=== PATIENT | female | born 1965 | race Caucasian/White ===

== ENCOUNTER 2021-12-14 13:51 | Outpatient (CLI) | payer MEDICARE | END 2021-12-14 13:52 | disposition home or self-care (01) | LOC: NAV CT 13:51 | PROVIDERS: ATTEND Internal Medicine Nephrology | DX: N18.30 Chronic kidney disease, stage 3 unspecified (principal); N28.1 Cyst of kidney, acquired; K76.9 Liver disease, unspecified; I70.90 Unspecified atherosclerosis; Z90.710 Acquired absence of both cervix and uterus; K42.9 Umbilical hernia without obstruction or gangrene | CPT/HCPCS: 74176 ==

== ENCOUNTER 2021-12-18 15:07 | Emergency (ER) | payer MEDICARE ==
[2021-12-18] MEDS ORDERED: Aspirin Chewable 81 MG TAB ONE (15:50)
[2021-12-18 15:51] LABS: #Basophils 0.1 thou/uL (0.0-0.2); #Eosinphils 0.4 thou/uL (0.0-0.7); #Lymphocytes 1.7 thou/uL (1.20-3.40); #Monocytes 0.7 thou/uL (0.11-0.59); #Neutrophils 4.3 thou/uL (1.40-6.50); %Basophils 0.7 % (0.0-1.0); %Eosinophils 5.7 % (0.0-10.0); %Lymphocytes 24.1 % (21.0-51.0); %Monocytes 9.2 % (0.0-10.0); %Neutrophils 60.2 % (42.0-75.0); Hemoglobin 9.2 g/dL (12.0-16.0); Mean Corpuscular HGB CONC 32.5 g/dL (32.0-36.0); Mean Corpuscular Hemoglobin 30.5 pg (27.0-31.0); Mean Corpuscular Volume 93.7 fL (78.0-98.0); Mean Platelet Volume 6.6 fL (7.4-10.4); Platelet Count 343 thou/uL (130-400); RBC Distribution Width 14.4 % (11.5-14.5); Red Blood Cell (RBC) Count 3.03 mill/uL (4.20-5.40); White Blood Cell (WBC) Count 7.2 thou/uL (4.8-10.8)
[2021-12-18 16:09] LABS: ALT (SGPT) 28 U/L (8-55); AST (SGOT) 31 U/L (5-34); Albumin 2.1 g/dL (3.5-5.0); Alkaline Phosphatase 421 U/L (40-110); Anion Gap 12 mmol/L (10-20); BUN (Urea Nitrogen) 22 mg/dL (9.8-20.1); Bilirubin, Total 0.1 mg/dL (0.2-1.2); Calc. Creatinine Clearance 0 mL/min (70-130); Calcium 8.7 mg/dL (7.8-10.44); Carbon Dioxide 24 mmol/L (22-29); Chloride 105 mmol/L (98-107); Globulin 3.5 g/dL (2.4-3.5); Glucose 359 mg/dL (70-105); Lipase 55 U/L (8-78); Potassium 4.2 mmol/L (3.5-5.1); Protein, Total 5.6 g/dL (6.0-8.3); Sodium 137 mmol/L (136-145)
[2021-12-18] MEDS ORDERED: Sodium Chloride 0.9% 1,000 ML ONE (18:43)
[2021-12-18 19:28] LABS: Troponin I Less than 0.010 ng/mL (< 0.028)
== END 2021-12-18 21:17 | disposition short-term general hospital (02) ==
LOC: NAV ERS 15:07
DX: R07.9 Chest pain, unspecified (principal); R60.0 Localized edema; R79.1 Abnormal coagulation profile; I10 Essential (primary) hypertension; E11.9 Type 2 diabetes mellitus without complications; E78.5 Hyperlipidemia, unspecified; Z79.84 Long term (current) use of oral hypoglycemic drugs; Z79.899 Other long term (current) drug therapy
CPT/HCPCS: 36415; 71045; 80053; 83690; 83880; 84484; 85025; 85379; 93005; 94760; J7050

== ENCOUNTER 2022-06-15 11:24 | Emergency (ER) | payer OTHER, MEDICARE ==
[2022-06-15] MEDS ORDERED: HYDROcodone/Acetaminophen 10/325 mg Tablet ONE (12:11)
== END 2022-06-15 15:05 | disposition home or self-care (01) ==
LOC: NAV ERS 11:24
DX: S22.42XA Multiple fractures of ribs, left side, initial encounter for closed fracture (principal); E11.9 Type 2 diabetes mellitus without complications; I10 Essential (primary) hypertension; E78.5 Hyperlipidemia, unspecified; Z79.899 Other long term (current) drug therapy; W01.10XA Fall on same level from slipping, tripping and stumbling with subsequent striking against unspecified object, initial encounter
CPT/HCPCS: 71250

== ENCOUNTER 2022-06-18 16:31 | Emergency (ER) | payer OTHER, MEDICARE ==
[2022-06-18] MEDS ORDERED: HYDROcodone/Acetaminophen 10/325 mg Tablet ONE (17:40)
[2022-06-18 17:58] LABS: #Basophils 0.1 thou/uL (0.0-0.2); #Eosinphils 0.1 thou/uL (0.0-0.7); #Lymphocytes 1.3 thou/uL (1.20-3.40); #Monocytes 0.7 thou/uL (0.11-0.59); #Neutrophils 6.8 thou/uL (1.40-6.50); %Basophils 0.7 % (0.0-1.0); %Lymphocytes 14.9 % (21.0-51.0); %Monocytes 8.1 % (0.0-10.0); %Neutrophils 75.4 % (42.0-75.0); Hemoglobin 10.6 g/dL (12.0-16.0); Mean Corpuscular HGB CONC 31.8 g/dL (32.0-36.0); Mean Corpuscular Hemoglobin 30.9 pg (27.0-31.0); Mean Corpuscular Volume 97.1 fL (78.0-98.0); Mean Platelet Volume 8.3 fL (7.4-10.4); Platelet Count 360 thou/uL (130-400); RBC Distribution Width 16.5 % (11.5-14.5); Red Blood Cell (RBC) Count 3.45 mill/uL (4.20-5.40)
[2022-06-18 18:09] LABS: ALT (SGPT) 26 U/L (8-55); AST (SGOT) 17 U/L (5-34); Albumin 2.1 g/dL (3.5-5.0); Alkaline Phosphatase 496 U/L (40-110); Anion Gap 14 mmol/L (10-20); BUN (Urea Nitrogen) 43 mg/dL (9.8-20.1); Bilirubin, Total 0.1 mg/dL (0.2-1.2); Calc. Creatinine Clearance 0 mL/min (70-130); Calcium 8.7 mg/dL (7.8-10.44); Carbon Dioxide 18 mmol/L (22-29); Chloride 109 mmol/L (98-107); Estimated GFR 22; Globulin 3.7 g/dL (2.4-3.5); Glucose 231 mg/dL (70-105); Potassium 4.2 mmol/L (3.5-5.1); Protein, Total 5.8 g/dL (6.0-8.3); Sodium 137 mmol/L (136-145)
[2022-06-18] MEDS ORDERED: Sodium Chloride 0.9% 100 ML ONE (18:34)
[2022-06-18] MEDS ORDERED: cefTRIAXone\\ROCEPHIN 1 GM VIAL ONE (18:34)
[2022-06-18 19:21] LABS: SARS-CoV-2 NAA Rapid Test DETECTED (NotDetected)
[2022-06-18] MEDS ORDERED: Metoprolol Tartrate 50 MG TAB ONE (19:31)
== END 2022-06-18 20:02 | disposition short-term general hospital (02) ==
LOC: NAV ERS 16:31
DX: U07.1 COVID-19 (principal); S22.42XA Multiple fractures of ribs, left side, initial encounter for closed fracture; J90 Pleural effusion, not elsewhere classified; N28.9 Disorder of kidney and ureter, unspecified; E11.9 Type 2 diabetes mellitus without complications; I10 Essential (primary) hypertension; E78.5 Hyperlipidemia, unspecified; Z79.4 Long term (current) use of insulin; Z79.899 Other long term (current) drug therapy; X58.XXXA Exposure to other specified factors, initial encounter
CPT/HCPCS: 36415; 71045; 80053; 83880; 84484; 85025; 85379; 93005; 94760; 96365; J0696; J3490; U0002

== ENCOUNTER 2022-06-27 09:39 | Inpatient (IN) | payer OTHER ==
[2022-06-27] MEDS ORDERED: Albuterol 200 PUFF (6.7GM INHALER) INH PRN (11:30)
[2022-06-27] MEDS ORDERED: Cyclobenzaprine 10 MG TAB PO PRN (11:35)
[2022-06-27] MEDS ORDERED: Senokot S 8.6-50 MG TAB PO PRN (11:36)
[2022-06-27] MEDS ORDERED: Dextrose 50% Abboject 50 ML SYRINGE SLOW IVP PRN (11:36)
[2022-06-27] MEDS ORDERED: Ondansetron ODT 4 MG TAB PO PRN (11:36)
[2022-06-27] MEDS ORDERED: Bisacodyl 5 MG TAB PO PRN (11:36)
[2022-06-27] MEDS ORDERED: HumaLOG 300 UNITS/3 ML VIAL SC PRN ×2 (11:38)
[2022-06-27] MEDS ORDERED: Promethazine HCl 25 MG/ML VIAL IM PRN (11:40)
[2022-06-27] MEDS: traMADol HCl 50 MG TAB PO SCH ×2 (13:50→21:41)
[2022-06-27 14:02] VITALS: BMI 26.9
[2022-06-27] MEDS: Gabapentin 100 MG CAP PO SCH ×2 (15:20→21:39)
[2022-06-27] MEDS: cloNIDine 0.1 MG TAB PO SCH ×2 (15:24→21:40)
[2022-06-27] MEDS: Acetaminophen 500 MG TAB PO SCH (17:53)
[2022-06-27] MEDS ORDERED: Atorvastatin Calcium 40 MG TAB PO SCH (21:00)
[2022-06-27] MEDS: Sodium Chloride 1 GM TAB PO SCH (21:38)
[2022-06-27] MEDS: Metoprolol Tartrate 50 MG TAB PO SCH (21:40)
[2022-06-28] MEDS: Acetaminophen 500 MG TAB PO SCH ×4 (00:40→17:06)
[2022-06-28] MEDS: traMADol HCl 50 MG TAB PO SCH ×2 (05:54→13:23)
[2022-06-28 06:07] LABS: #Basophils 0.1 thou/uL (0.0-0.2); #Eosinphils 0.3 thou/uL (0.0-0.7); #Lymphocytes 1.6 thou/uL (1.20-3.40); #Monocytes 0.7 thou/uL (0.11-0.59); #Neutrophils 7.8 thou/uL (1.40-6.50); %Basophils 0.5 % (0.0-1.0); %Eosinophils 2.7 % (0.0-10.0); %Lymphocytes 15.7 % (21.0-51.0); %Monocytes 6.2 % (0.0-10.0); %Neutrophils 74.9 % (42.0-75.0); Hemoglobin 10.9 g/dL (12.0-16.0); Mean Corpuscular HGB CONC 31.5 g/dL (32.0-36.0); Mean Corpuscular Hemoglobin 30.3 pg (27.0-31.0); Mean Corpuscular Volume 96.1 fL (78.0-98.0); Mean Platelet Volume 8.5 fL (7.4-10.4); Platelet Count 417 thou/uL (130-400); RBC Distribution Width 16.7 % (11.5-14.5); Red Blood Cell (RBC) Count 3.61 mill/uL (4.20-5.40); White Blood Cell (WBC) Count 10.4 thou/uL (4.8-10.8)
[2022-06-28 06:21] LABS: ALT (SGPT) 37 U/L (8-55); AST (SGOT) 26 U/L (5-34); Albumin 1.9 g/dL (3.5-5.0); Alkaline Phosphatase 993 U/L (40-110); Anion Gap 16 mmol/L (10-20); BUN (Urea Nitrogen) 43 mg/dL (9.8-20.1); Bilirubin, Total 0.3 mg/dL (0.2-1.2); Calc. Creatinine Clearance 26 mL/min (70-130); Calcium 8.1 mg/dL (7.8-10.44); Carbon Dioxide 20 mmol/L (22-29); Chloride 99 mmol/L (98-107); Estimated GFR 21; Globulin 3.6 g/dL (2.4-3.5); Glucose 126 mg/dL (70-105); Potassium 4.2 mmol/L (3.5-5.1); Protein, Total 5.5 g/dL (6.0-8.3); Sodium 131 mmol/L (136-145)
[2022-06-28] MEDS ORDERED: Ferrous Sulfate 325 MG TAB PO SCH (08:00)
[2022-06-28] MEDS: Sodium Chloride 1 GM TAB PO SCH (08:50)
[2022-06-28] MEDS: Metoprolol Tartrate 50 MG TAB PO SCH (08:50)
[2022-06-28] MEDS: Gabapentin 100 MG CAP PO SCH ×2 (08:51→15:08)
[2022-06-28] MEDS: cloNIDine 0.1 MG TAB PO SCH ×2 (08:53→15:09)
[2022-06-28] MEDS ORDERED: Enoxaparin Sodium 30 MG/0.3 ML SYRINGE SC SCH (09:00)
[2022-06-28] MEDS ORDERED: Ascorbic Acid 500 mg Chewable Tablet PO SCH (09:00)
[2022-06-28 11:32] VITALS: TEMP 97.7
[2022-06-28 15:25] VITALS: BP 100/63
[2022-06-28] MEDS ORDERED: Furosemide 20 MG TAB PO SCH (15:45)
== END 2022-06-28 17:30 | disposition short-term general hospital (02) | DRG 947 ==
LOC: NAV ACUTE 12:46
PROVIDERS: ADMIT Family Medicine; ATTEND Family Medicine
PROC: 8E0ZXY6 Isolation (ICD-10-PCS; principal; 2022-06-27)
DX: R53.81 Other malaise (principal); S27.1XXA Traumatic hemothorax, initial encounter; U07.1 COVID-19; S22.42XA Multiple fractures of ribs, left side, initial encounter for closed fracture; I13.0 Hypertensive heart and chronic kidney disease with heart failure and stage 1 through stage 4 chronic kidney disease, or unspecified chronic kidney disease; I50.30 Unspecified diastolic (congestive) heart failure; N18.4 Chronic kidney disease, stage 4 (severe); E87.1 Hypo-osmolality and hyponatremia; N17.9 Acute kidney failure, unspecified; E78.5 Hyperlipidemia, unspecified; E11.22 Type 2 diabetes mellitus with diabetic chronic kidney disease; Z90.710 Acquired absence of both cervix and uterus; Z90.89 Acquired absence of other organs; Z88.5 Allergy status to narcotic agent; Z83.3 Family history of diabetes mellitus; Z82.49 Family history of ischemic heart disease and other diseases of the circulatory system
CPT/HCPCS: 36415; 36416; 80053; 85025; J1650; J1815

== ENCOUNTER 2022-07-04 15:11 | Inpatient (IN) | payer OTHER ==
[2022-07-04] MEDS ORDERED: Senokot S 8.6-50 MG TAB PO PRN (16:52)
[2022-07-04] MEDS ORDERED: Bisacodyl 5 MG TAB PO PRN (16:52)
[2022-07-04] MEDS ORDERED: Ondansetron ODT 4 MG TAB PO PRN (16:52)
[2022-07-04] MEDS ORDERED: Dextrose 50% Abboject 50 ML SYRINGE SLOW IVP PRN (16:52)
[2022-07-04] MEDS ORDERED: Albuterol Sulfate 2.5 mg/3 ml Neb NEB PRN (20:13)
[2022-07-04] MEDS ORDERED: Ondansetron ODT 4 MG TAB SL PRN (21:00)
[2022-07-04] MEDS: Atorvastatin Calcium 40 MG TAB PO SCH (21:11)
[2022-07-04] MEDS: cloNIDine 0.1 MG TAB PO SCH (21:11)
[2022-07-04] MEDS: Famotidine 20 MG TAB PO SCH (21:12)
[2022-07-04] MEDS: Gabapentin 100 MG CAP PO SCH (21:12)
[2022-07-04] MEDS: Lantus 1000 UNITS/10 ML VIAL SC SCH (21:13)
[2022-07-04] MEDS: Metoprolol Tartrate 50 MG TAB PO SCH (21:13)
[2022-07-04] MEDS: traMADol HCl 50 MG TAB PO SCH (22:12)
[2022-07-05] MEDS: traMADol HCl 50 MG TAB PO SCH ×3 (05:23→21:03)
[2022-07-05 06:13] LABS: ALT (SGPT) 60 U/L (8-55); AST (SGOT) 57 U/L (5-34); Albumin 1.7 g/dL (3.5-5.0); Alkaline Phosphatase 1135 U/L (40-110); Anion Gap 12 mmol/L (10-20); BUN (Urea Nitrogen) 35 mg/dL (9.8-20.1); Bilirubin, Total 0.2 mg/dL (0.2-1.2); Calc. Creatinine Clearance 35 mL/min (70-130); Calcium 7.7 mg/dL (7.8-10.44); Chloride 112 mmol/L (98-107); Estimated GFR 31; Glucose 84 mg/dL (70-105); Potassium 3.8 mmol/L (3.5-5.1); Protein, Total 4.7 g/dL (6.0-8.3); Sodium 142 mmol/L (136-145)
[2022-07-05 06:36] LABS: #Basophils 0.1 thou/uL (0.0-0.2); #Eosinphils 0.7 thou/uL (0.0-0.7); #Lymphocytes 1.2 thou/uL (1.20-3.40); #Monocytes 0.6 thou/uL (0.11-0.59); #Neutrophils 5.7 thou/uL (1.40-6.50); %Basophils 1.2 % (0.0-1.0); %Eosinophils 8.3 % (0.0-10.0); %Lymphocytes 14.2 % (21.0-51.0); %Monocytes 7.5 % (0.0-10.0); %Neutrophils 68.9 % (42.0-75.0); Mean Corpuscular HGB CONC 31.1 g/dL (32.0-36.0); Mean Corpuscular Hemoglobin 30.7 pg (27.0-31.0); Mean Corpuscular Volume 98.6 fL (78.0-98.0); Mean Platelet Volume 8.5 fL (7.4-10.4); Platelet Count 399 thou/uL (130-400); RBC Distribution Width 17.9 % (11.5-14.5); Red Blood Cell (RBC) Count 2.95 mill/uL (4.20-5.40); White Blood Cell (WBC) Count 8.3 thou/uL (4.8-10.8)
[2022-07-05 06:40] LABS: Carbon Dioxide 22 mmol/L (22-29)
[2022-07-05] MEDS: Metoprolol Tartrate 50 MG TAB PO SCH ×2 (08:13→20:55)
[2022-07-05] MEDS: Gabapentin 100 MG CAP PO SCH ×3 (08:13→20:56)
[2022-07-05] MEDS: Enoxaparin Sodium 30 MG/0.3 ML SYRINGE SC SCH (08:13)
[2022-07-05] MEDS: Ferrous Sulfate 325 MG TAB PO SCH (08:13)
[2022-07-05] MEDS: cloNIDine 0.1 MG TAB PO SCH ×3 (08:14→20:57)
[2022-07-05] MEDS: Famotidine 20 MG TAB PO SCH (08:14)
[2022-07-05] MEDS: Ascorbic Acid 500 mg Chewable Tablet PO SCH (08:14)
[2022-07-05] MEDS: Cyclobenzaprine 10 MG TAB PO PRN (08:44)
[2022-07-05] MEDS ORDERED: Metoprolol Tartrate 50 MG TAB PO SCH (09:45)
[2022-07-05] MEDS: Lantus 1000 UNITS/10 ML VIAL SC SCH (20:53)
[2022-07-05] MEDS: Atorvastatin Calcium 40 MG TAB PO SCH (20:56)
[2022-07-06] MEDS: traMADol HCl 50 MG TAB PO SCH ×3 (05:32→21:17)
[2022-07-06] MEDS ORDERED: Furosemide 40 MG TAB PO SCH (08:00)
[2022-07-06] MEDS: Enoxaparin Sodium 30 MG/0.3 ML SYRINGE SC SCH (09:02)
[2022-07-06] MEDS: Gabapentin 100 MG CAP PO SCH ×3 (09:03→21:16)
[2022-07-06] MEDS: Ferrous Sulfate 325 MG TAB PO SCH (09:04)
[2022-07-06] MEDS: Famotidine 20 MG TAB PO SCH (09:04)
[2022-07-06] MEDS: Polyethylene Glycol 3350 17 GM Packet PO SCH (09:05)
[2022-07-06] MEDS: Metoprolol Tartrate 50 MG TAB PO SCH ×2 (09:05→21:16)
[2022-07-06] MEDS: Ascorbic Acid 500 mg Chewable Tablet PO SCH (09:05)
[2022-07-06] MEDS: cloNIDine 0.1 MG TAB PO SCH ×3 (09:05→21:16)
[2022-07-06] MEDS: Atorvastatin Calcium 40 MG TAB PO SCH (21:16)
[2022-07-06] MEDS: Cyclobenzaprine 10 MG TAB PO PRN (21:17)
[2022-07-06] MEDS: Lantus 1000 UNITS/10 ML VIAL SC SCH (21:18)
[2022-07-07] MEDS: traMADol HCl 50 MG TAB PO SCH ×3 (06:13→21:12)
[2022-07-07] MEDS: Enoxaparin Sodium 30 MG/0.3 ML SYRINGE SC SCH (08:54)
[2022-07-07] MEDS: Polyethylene Glycol 3350 17 GM Packet PO SCH (08:54)
[2022-07-07] MEDS: Gabapentin 100 MG CAP PO SCH ×3 (08:55→21:11)
[2022-07-07] MEDS: cloNIDine 0.1 MG TAB PO SCH ×3 (08:55→21:12)
[2022-07-07] MEDS: Famotidine 20 MG TAB PO SCH (08:55)
[2022-07-07] MEDS: Ferrous Sulfate 325 MG TAB PO SCH (08:55)
[2022-07-07] MEDS: Ascorbic Acid 500 mg Chewable Tablet PO SCH (08:55)
[2022-07-07] MEDS: Metoprolol Tartrate 50 MG TAB PO SCH ×2 (08:56→21:13)
[2022-07-07] MEDS: Cyclobenzaprine 10 MG TAB PO PRN ×2 (08:56→21:12)
[2022-07-07] MEDS ORDERED: Fluconazole 100 MG TAB PO SCH (11:15)
[2022-07-07] MEDS: HumaLOG 300 UNITS/3 ML VIAL SC PRN (16:46)
[2022-07-07] MEDS: Lantus 1000 UNITS/10 ML VIAL SC SCH (21:11)
[2022-07-07] MEDS: Atorvastatin Calcium 40 MG TAB PO SCH (21:11)
[2022-07-08] MEDS: traMADol HCl 50 MG TAB PO SCH ×3 (05:52→20:15)
[2022-07-08 06:11] LABS: Anion Gap 13 mmol/L (10-20); BUN (Urea Nitrogen) 37 mg/dL (9.8-20.1); Calc. Creatinine Clearance 38 mL/min (70-130); Calcium 7.7 mg/dL (7.8-10.44); Carbon Dioxide 20 mmol/L (22-29); Chloride 111 mmol/L (98-107); Estimated GFR 34; Glucose 108 mg/dL (70-105); Potassium 6.2 mmol/L (3.5-5.1); Sodium 138 mmol/L (136-145)
[2022-07-08] MEDS: Famotidine 20 MG TAB PO SCH (08:23)
[2022-07-08] MEDS: Ferrous Sulfate 325 MG TAB PO SCH (08:23)
[2022-07-08] MEDS: Fluconazole 100 MG TAB PO SCH (08:23)
[2022-07-08] MEDS: Ascorbic Acid 500 mg Chewable Tablet PO SCH (08:23)
[2022-07-08] MEDS: cloNIDine 0.1 MG TAB PO SCH ×3 (08:24→20:25)
[2022-07-08] MEDS: Gabapentin 100 MG CAP PO SCH ×3 (08:24→20:16)
[2022-07-08] MEDS: Metoprolol Tartrate 50 MG TAB PO SCH ×2 (08:24→20:16)
[2022-07-08] MEDS: Enoxaparin Sodium 30 MG/0.3 ML SYRINGE SC SCH (08:25)
[2022-07-08] MEDS: Polyethylene Glycol 3350 17 GM Packet PO SCH ×2 (08:25→08:26)
[2022-07-08 10:03] LABS: #Basophils 0.1 thou/uL (0.0-0.2); #Lymphocytes 1.3 thou/uL (1.20-3.40); #Monocytes 0.7 thou/uL (0.11-0.59); #Neutrophils 5.5 thou/uL (1.40-6.50); %Lymphocytes 15.4 % (21.0-51.0); %Monocytes 7.6 % (0.0-10.0); Hemoglobin 8.2 g/dL (12.0-16.0); Mean Corpuscular HGB CONC 30.5 g/dL (32.0-36.0); Mean Corpuscular Hemoglobin 30.3 pg (27.0-31.0); Mean Corpuscular Volume 99.1 fL (78.0-98.0); Platelet Count 396 thou/uL (130-400); RBC Distribution Width 18.4 % (11.5-14.5); Red Blood Cell (RBC) Count 2.72 mill/uL (4.20-5.40); White Blood Cell (WBC) Count 8.7 thou/uL (4.8-10.8)
[2022-07-08] MEDS: Lantus 1000 UNITS/10 ML VIAL SC SCH (20:15)
[2022-07-08] MEDS: Cyclobenzaprine 10 MG TAB PO PRN (20:16)
[2022-07-08] MEDS: Atorvastatin Calcium 40 MG TAB PO SCH (20:17)
[2022-07-09 05:35] VITALS: BMI 28.3
[2022-07-09] MEDS: traMADol HCl 50 MG TAB PO SCH ×3 (05:47→20:45)
[2022-07-09 05:58] LABS: #Basophils 0.1 thou/uL (0.0-0.2); #Lymphocytes 1.8 thou/uL (1.20-3.40); #Monocytes 0.9 thou/uL (0.11-0.59); #Neutrophils 5.7 thou/uL (1.40-6.50); %Basophils 1.4 % (0.0-1.0); %Eosinophils 10.1 % (0.0-10.0); %Lymphocytes 19.2 % (21.0-51.0); %Monocytes 9.2 % (0.0-10.0); %Neutrophils 60.1 % (42.0-75.0); Hemoglobin 8.5 g/dL (12.0-16.0); Mean Corpuscular HGB CONC 30.3 g/dL (32.0-36.0); Mean Corpuscular Hemoglobin 30.5 pg (27.0-31.0); Platelet Count 364 thou/uL (130-400); RBC Distribution Width 18.6 % (11.5-14.5); Red Blood Cell (RBC) Count 2.79 mill/uL (4.20-5.40); White Blood Cell (WBC) Count 9.5 thou/uL (4.8-10.8)
[2022-07-09 06:04] LABS: Anion Gap 15 mmol/L (10-20); BUN (Urea Nitrogen) 40 mg/dL (9.8-20.1); Calc. Creatinine Clearance 37 mL/min (70-130); Calcium 7.6 mg/dL (7.8-10.44); Carbon Dioxide 16 mmol/L (22-29); Chloride 114 mmol/L (98-107); Estimated GFR 31; Glucose 133 mg/dL (70-105); Sodium 138 mmol/L (136-145)
[2022-07-09] MEDS: Gabapentin 100 MG CAP PO SCH ×3 (08:19→20:44)
[2022-07-09] MEDS: Enoxaparin Sodium 30 MG/0.3 ML SYRINGE SC SCH (08:19)
[2022-07-09] MEDS: Ferrous Sulfate 325 MG TAB PO SCH (08:20)
[2022-07-09] MEDS: Fluconazole 100 MG TAB PO SCH (08:20)
[2022-07-09] MEDS: Famotidine 20 MG TAB PO SCH (08:20)
[2022-07-09] MEDS: cloNIDine 0.1 MG TAB PO SCH ×3 (08:20→20:45)
[2022-07-09] MEDS: Metoprolol Tartrate 50 MG TAB PO SCH ×2 (08:21→20:44)
[2022-07-09] MEDS: Ascorbic Acid 500 mg Chewable Tablet PO SCH (08:21)
[2022-07-09] MEDS: Polyethylene Glycol 3350 17 GM Packet PO SCH (08:22)
[2022-07-09 09:29] LABS: Potassium 4.5 mmol/L (3.5-5.1)
[2022-07-09] MEDS: Atorvastatin Calcium 40 MG TAB PO SCH (20:43)
[2022-07-09] MEDS: Lantus 1000 UNITS/10 ML VIAL SC SCH (20:48)
[2022-07-10] MEDS: HumaLOG 300 UNITS/3 ML VIAL SC PRN ×3 (06:01→16:40)
[2022-07-10] MEDS: traMADol HCl 50 MG TAB PO SCH ×3 (06:01→22:07)
[2022-07-10] MEDS: Gabapentin 100 MG CAP PO SCH ×3 (07:54→20:33)
[2022-07-10] MEDS: Polyethylene Glycol 3350 17 GM Packet PO SCH ×2 (07:54→07:56)
[2022-07-10] MEDS: Enoxaparin Sodium 30 MG/0.3 ML SYRINGE SC SCH (07:54)
[2022-07-10] MEDS: Metoprolol Tartrate 50 MG TAB PO SCH ×2 (07:55→20:34)
[2022-07-10] MEDS: Ascorbic Acid 500 mg Chewable Tablet PO SCH (07:55)
[2022-07-10] MEDS: Famotidine 20 MG TAB PO SCH (07:55)
[2022-07-10] MEDS: Fluconazole 100 MG TAB PO SCH (07:55)
[2022-07-10] MEDS: Ferrous Sulfate 325 MG TAB PO SCH (07:55)
[2022-07-10] MEDS: cloNIDine 0.1 MG TAB PO SCH ×3 (07:55→20:35)
[2022-07-10] MEDS: Cyclobenzaprine 10 MG TAB PO PRN (11:15)
[2022-07-10] MEDS: Acetaminophen 325 MG TAB PO PRN (11:15)
[2022-07-10] MEDS ORDERED: NIFEdipine XL 30 MG TAB PO SCH (17:00)
[2022-07-10] MEDS ORDERED: Fluconazole 100 MG TAB PO SCH (17:15)
[2022-07-10] MEDS: Atorvastatin Calcium 40 MG TAB PO SCH (20:36)
[2022-07-10] MEDS: Lantus 1000 UNITS/10 ML VIAL SC SCH (20:36)
[2022-07-11] MEDS: traMADol HCl 50 MG TAB PO SCH ×3 (05:26→21:39)
[2022-07-11] MEDS: Ferrous Sulfate 325 MG TAB PO SCH (08:49)
[2022-07-11] MEDS: Gabapentin 100 MG CAP PO SCH ×3 (08:49→21:38)
[2022-07-11] MEDS: Famotidine 20 MG TAB PO SCH (08:50)
[2022-07-11] MEDS: Ascorbic Acid 500 mg Chewable Tablet PO SCH (08:50)
[2022-07-11] MEDS: Polyethylene Glycol 3350 17 GM Packet PO SCH (08:50)
[2022-07-11] MEDS: Enoxaparin Sodium 30 MG/0.3 ML SYRINGE SC SCH (08:50)
[2022-07-11] MEDS: Acetaminophen 325 MG TAB PO PRN (08:54)
[2022-07-11] MEDS: NIFEdipine XL 30 MG TAB PO SCH (09:01)
[2022-07-11] MEDS: Metoprolol Tartrate 50 MG TAB PO SCH ×2 (09:02→21:39)
[2022-07-11] MEDS: cloNIDine 0.1 MG TAB PO SCH ×2 (09:02→16:03)
[2022-07-11] MEDS: HumaLOG 300 UNITS/3 ML VIAL SC PRN ×3 (11:22→21:40)
[2022-07-11 16:18] LABS: #Basophils 0.1 thou/uL (0.0-0.2); #Eosinphils 0.5 thou/uL (0.0-0.7); #Lymphocytes 2.2 thou/uL (1.20-3.40); #Monocytes 0.8 thou/uL (0.11-0.59); #Neutrophils 5.4 thou/uL (1.40-6.50); %Basophils 1.4 % (0.0-1.0); %Eosinophils 5.7 % (0.0-10.0); %Lymphocytes 24.1 % (21.0-51.0); %Monocytes 9.1 % (0.0-10.0); %Neutrophils 59.7 % (42.0-75.0); Hemoglobin 8.6 g/dL (12.0-16.0); Mean Corpuscular HGB CONC 29.3 g/dL (32.0-36.0); Mean Platelet Volume 7.7 fL (7.4-10.4); Platelet Count 445 thou/uL (130-400); RBC Distribution Width 19.5 % (11.5-14.5); Red Blood Cell (RBC) Count 2.85 mill/uL (4.20-5.40)
[2022-07-11 16:35] LABS: Anion Gap 17 mmol/L (10-20); BUN (Urea Nitrogen) 40 mg/dL (9.8-20.1); Calc. Creatinine Clearance 28 mL/min (70-130); Calcium 8.5 mg/dL (7.8-10.44); Carbon Dioxide 16 mmol/L (22-29); Chloride 109 mmol/L (98-107); Estimated GFR 23; Glucose 195 mg/dL (70-105); Potassium 5.3 mmol/L (3.5-5.1); Sodium 137 mmol/L (136-145)
[2022-07-11] MEDS ORDERED: Sodium Chloride 0.9% 1,000 ML IV SCH (19:00)
[2022-07-11] MEDS: Lantus 1000 UNITS/10 ML VIAL SC SCH (21:39)
[2022-07-11] MEDS: Atorvastatin Calcium 40 MG TAB PO SCH (21:46)
[2022-07-12] MEDS: traMADol HCl 50 MG TAB PO SCH ×3 (05:51→20:57)
[2022-07-12 06:11] LABS: Bilirubin Negative (Negative); Blood, Urine Moderate (Negative); Clarity Slightly Cloudy (Clear); Glucose, Urine (Dipstick) 250 mg/dL (Negative); Ketone, Urine Negative (Negative); Leukocyte Small (Negative); Nitrite Positive (Negative); Protein, Urine (Dipstick) > or equal to 300 mg/dL (Neg-Trace); Urobilinogen 0.2 mg/dL (Less than 2); pH, Urine 5.5 (5.0-9.0)
[2022-07-12 06:20] LABS: Bacteria/HPF 4+ HPF (None Seen); Squamous Epithelial None Seen HPF (0-3); WBC/HPF Greater than 50 HPF (0-3); Yeast-Budding 1+ HPF (None Seen); Yeast-Hyphae 1+ HPF (None Seen)
[2022-07-12 06:21] LABS: Broad Cast 0-3 LPF (None Seen)
[2022-07-12 06:38] LABS: Anion Gap 15 mmol/L (10-20); BUN (Urea Nitrogen) 42 mg/dL (9.8-20.1); Calc. Creatinine Clearance 28 mL/min (70-130); Calcium 8.2 mg/dL (7.8-10.44); Carbon Dioxide 17 mmol/L (22-29); Chloride 112 mmol/L (98-107); Estimated GFR 22; Glucose 133 mg/dL (70-105); Potassium 5.1 mmol/L (3.5-5.1); Sodium 139 mmol/L (136-145)
[2022-07-12 06:40] LABS: #Basophils 0.2 thou/uL (0.0-0.2); #Eosinphils 0.7 thou/uL (0.0-0.7); #Lymphocytes 1.5 thou/uL (1.20-3.40); #Monocytes 1.1 thou/uL (0.11-0.59); #Neutrophils 4.7 thou/uL (1.40-6.50); %Basophils 1.9 % (0.0-1.0); %Eosinophils 8.8 % (0.0-10.0); %Monocytes 13.5 % (0.0-10.0); %Neutrophils 57.9 % (42.0-75.0); Hemoglobin 7.8 g/dL (12.0-16.0); Mean Corpuscular HGB CONC 29.6 g/dL (32.0-36.0); Mean Platelet Volume 8.1 fL (7.4-10.4); Platelet Count 392 thou/uL (130-400); RBC Distribution Width 19.1 % (11.5-14.5); Red Blood Cell (RBC) Count 2.59 mill/uL (4.20-5.40); White Blood Cell (WBC) Count 8.1 thou/uL (4.8-10.8)
[2022-07-12] MEDS: Enoxaparin Sodium 30 MG/0.3 ML SYRINGE SC SCH (08:16)
[2022-07-12] MEDS: Gabapentin 100 MG CAP PO SCH ×3 (08:17→20:56)
[2022-07-12] MEDS: Ascorbic Acid 500 mg Chewable Tablet PO SCH (08:17)
[2022-07-12] MEDS: Ferrous Sulfate 325 MG TAB PO SCH (08:17)
[2022-07-12] MEDS: Metoprolol Tartrate 50 MG TAB PO SCH ×2 (08:17→20:56)
[2022-07-12] MEDS: Famotidine 20 MG TAB PO SCH (08:18)
[2022-07-12] MEDS: NIFEdipine XL 30 MG TAB PO SCH (08:18)
[2022-07-12] MEDS: Polyethylene Glycol 3350 17 GM Packet PO SCH ×2 (08:21→09:28)
[2022-07-12] MEDS ORDERED: Fluconazole 100 MG TAB PO SCH (09:00)
[2022-07-12] MEDS ORDERED: Furosemide 40 MG/4 ML VIAL SLOW IVP SCH (11:45)
[2022-07-12] MEDS: Lantus 1000 UNITS/10 ML VIAL SC SCH (20:55)
[2022-07-12] MEDS: HumaLOG 300 UNITS/3 ML VIAL SC PRN (20:55)
[2022-07-12] MEDS: Atorvastatin Calcium 40 MG TAB PO SCH (20:56)
[2022-07-13] MEDS: traMADol HCl 50 MG TAB PO SCH (05:53)
[2022-07-13 07:40] VITALS: TEMP 98
[2022-07-13 07:51] LABS: #Basophils 0.1 thou/uL (0.0-0.2); #Lymphocytes 1.5 thou/uL (1.20-3.40); #Monocytes 1.1 thou/uL (0.11-0.59); %Basophils 1.5 % (0.0-1.0); %Eosinophils 11.2 % (0.0-10.0); %Lymphocytes 17.3 % (21.0-51.0); %Neutrophils 57.1 % (42.0-75.0); Hemoglobin 8.4 g/dL (12.0-16.0); Mean Corpuscular HGB CONC 30.2 g/dL (32.0-36.0); Mean Corpuscular Hemoglobin 30.3 pg (27.0-31.0); Platelet Count 456 thou/uL (130-400); RBC Distribution Width 19.3 % (11.5-14.5); Red Blood Cell (RBC) Count 2.78 mill/uL (4.20-5.40); White Blood Cell (WBC) Count 8.7 thou/uL (4.8-10.8)
[2022-07-13 07:54] LABS: Anion Gap 15 mmol/L (10-20); BUN (Urea Nitrogen) 44 mg/dL (9.8-20.1); Calc. Creatinine Clearance 24 mL/min (70-130); Calcium 8.3 mg/dL (7.8-10.44); Carbon Dioxide 19 mmol/L (22-29); Chloride 110 mmol/L (98-107); Estimated GFR 18; Glucose 150 mg/dL (70-105); Potassium 5.1 mmol/L (3.5-5.1); Sodium 139 mmol/L (136-145)
[2022-07-13] MEDS: Enoxaparin Sodium 30 MG/0.3 ML SYRINGE SC SCH (08:10)
[2022-07-13] MEDS: Metoprolol Tartrate 50 MG TAB PO SCH (08:10)
[2022-07-13] MEDS: NIFEdipine XL 30 MG TAB PO SCH (08:10)
[2022-07-13] MEDS: Polyethylene Glycol 3350 17 GM Packet PO SCH (08:10)
[2022-07-13] MEDS: Ferrous Sulfate 325 MG TAB PO SCH (08:10)
[2022-07-13] MEDS: Gabapentin 100 MG CAP PO SCH ×2 (08:10→15:19)
[2022-07-13] MEDS: Ascorbic Acid 500 mg Chewable Tablet PO SCH (08:10)
[2022-07-13] MEDS: Famotidine 20 MG TAB PO SCH (08:10)
[2022-07-13] MEDS ORDERED: Fluconazole 100 MG TAB PO SCH ×3 (10:15→12:00)
[2022-07-13 15:05] VITALS: BP 118/71
[2022-07-13] MEDS ORDERED: traMADol HCl 50 MG TAB PO SCH (21:00)
== END 2022-07-13 15:44 | disposition short-term general hospital (02) | DRG 947 ==
LOC: NAV ACUTE 18:16
PROVIDERS: ADMIT Family Medicine; ATTEND Family Medicine
DX: R53.81 Other malaise (principal); J96.01 Acute respiratory failure with hypoxia; E87.1 Hypo-osmolality and hyponatremia; I13.0 Hypertensive heart and chronic kidney disease with heart failure and stage 1 through stage 4 chronic kidney disease, or unspecified chronic kidney disease; I50.32 Chronic diastolic (congestive) heart failure; N18.4 Chronic kidney disease, stage 4 (severe); B37.49 Other urogenital candidiasis; E87.2 Acidosis; R33.9 Retention of urine, unspecified; S22.42XD Multiple fractures of ribs, left side, subsequent encounter for fracture with routine healing; E87.5 Hyperkalemia; D63.1 Anemia in chronic kidney disease; R53.1 Weakness; I95.9 Hypotension, unspecified; E11.22 Type 2 diabetes mellitus with diabetic chronic kidney disease; E78.5 Hyperlipidemia, unspecified; Z90.710 Acquired absence of both cervix and uterus; Z90.89 Acquired absence of other organs; Z88.6 Allergy status to analgesic agent; Z83.3 Family history of diabetes mellitus; Z82.49 Family history of ischemic heart disease and other diseases of the circulatory system; Z79.899 Other long term (current) drug therapy; Z79.4 Long term (current) use of insulin; W18.30XD Fall on same level, unspecified, subsequent encounter; Z86.16 Personal history of COVID-19
CPT/HCPCS: 36415; 36416; 71046; 80048; 80053; 81001; 83605; 83880; 84145; 85025; 87040; 87077; 87086; 94640; J1650; J1815; J1940; J7050; J7611; Q0162

== ENCOUNTER 2022-07-26 11:38 | Inpatient (IN) | payer OTHER ==
[2022-07-26] MEDS ORDERED: Senokot S 8.6-50 MG TAB PO PRN (12:23)
[2022-07-26] MEDS ORDERED: Bisacodyl 5 MG TAB PO PRN (12:23)
[2022-07-26] MEDS ORDERED: Dextrose 50% Abboject 50 ML SYRINGE SLOW IVP PRN (12:25)
[2022-07-26] MEDS ORDERED: HumaLOG 300 UNITS/3 ML VIAL SC PRN (12:25)
[2022-07-26] MEDS ORDERED: Albuterol Sulfate 2.5 mg/3 ml Neb NEB PRN (15:46)
[2022-07-26] MEDS ORDERED: Famotidine 20 MG TAB PO SCH (21:00)
[2022-07-26] MEDS: Acetaminophen 325 MG TAB PO PRN (21:35)
[2022-07-26] MEDS: Heparin 5,000 UNITS/ML VIAL SC SCH (21:35)
[2022-07-26] MEDS: Atorvastatin Calcium 40 MG TAB PO SCH (21:36)
[2022-07-26] MEDS: Metoprolol Tartrate 50 MG TAB PO SCH (21:36)
[2022-07-27 06:13] LABS: #Basophils 0.1 thou/uL (0.0-0.2); #Eosinphils 0.3 thou/uL (0.0-0.7); #Lymphocytes 1.6 thou/uL (1.20-3.40); #Neutrophils 6.7 thou/uL (1.40-6.50); %Basophils 1.4 % (0.0-1.0); %Eosinophils 3.3 % (0.0-10.0); %Lymphocytes 16.7 % (21.0-51.0); %Monocytes 9.9 % (0.0-10.0); %Neutrophils 68.7 % (42.0-75.0); Hemoglobin 9.3 g/dL (12.0-16.0); Mean Corpuscular HGB CONC 31.5 g/dL (32.0-36.0); Mean Corpuscular Hemoglobin 31.6 pg (27.0-31.0); Mean Platelet Volume 9.8 fL (7.4-10.4); Platelet Count 385 thou/uL (130-400); RBC Distribution Width 17.6 % (11.5-14.5); Red Blood Cell (RBC) Count 2.93 mill/uL (4.20-5.40); White Blood Cell (WBC) Count 9.7 thou/uL (4.8-10.8)
[2022-07-27 06:28] LABS: ALT (SGPT) 38 U/L (8-55); AST (SGOT) 43 U/L (5-34); Albumin 2.1 g/dL (3.5-5.0); Alkaline Phosphatase 884 U/L (40-110); Anion Gap 14 mmol/L (10-20); BUN (Urea Nitrogen) 33 mg/dL (9.8-20.1); Bilirubin, Total 0.3 mg/dL (0.2-1.2); Calc. Creatinine Clearance 22 mL/min (70-130); Calcium 7.9 mg/dL (7.8-10.44); Carbon Dioxide 23 mmol/L (22-29); Chloride 109 mmol/L (98-107); Estimated GFR 21; Globulin 2.7 g/dL (2.4-3.5); Glucose 92 mg/dL (70-105); Potassium 3.7 mmol/L (3.5-5.1); Protein, Total 4.8 g/dL (6.0-8.3); Sodium 142 mmol/L (136-145)
[2022-07-27] MEDS: Folic Acid 1 MG TAB PO SCH (08:20)
[2022-07-27] MEDS: Ascorbic Acid 500 mg Chewable Tablet PO SCH (08:21)
[2022-07-27] MEDS: NIFEdipine XL 30 MG TAB PO SCH (08:21)
[2022-07-27] MEDS: Furosemide 20 MG TAB PO SCH (08:21)
[2022-07-27] MEDS: Metoprolol Tartrate 50 MG TAB PO SCH ×2 (08:21→20:48)
[2022-07-27] MEDS: Lantus 1000 UNITS/10 ML VIAL SC SCH (08:22)
[2022-07-27] MEDS: Heparin 5,000 UNITS/ML VIAL SC SCH ×3 (08:23→20:46)
[2022-07-27] MEDS ORDERED: Senokot S 8.6-50 MG TAB PO PRN (15:45)
[2022-07-27] MEDS: Atorvastatin Calcium 40 MG TAB PO SCH (20:48)
[2022-07-28] MEDS: NIFEdipine XL 30 MG TAB PO SCH (08:59)
[2022-07-28] MEDS: Furosemide 20 MG TAB PO SCH (09:00)
[2022-07-28] MEDS: Metoprolol Tartrate 50 MG TAB PO SCH ×2 (09:00→21:50)
[2022-07-28] MEDS: Ascorbic Acid 500 mg Chewable Tablet PO SCH (09:00)
[2022-07-28] MEDS: Folic Acid 1 MG TAB PO SCH (09:00)
[2022-07-28] MEDS: Lantus 1000 UNITS/10 ML VIAL SC SCH (09:01)
[2022-07-28] MEDS: Heparin 5,000 UNITS/ML VIAL SC SCH ×3 (09:01→21:33)
[2022-07-28] MEDS: Acetaminophen 325 MG TAB PO PRN (09:02)
[2022-07-28] MEDS: HumaLOG 300 UNITS/3 ML VIAL SC PRN (12:01)
[2022-07-28] MEDS: Atorvastatin Calcium 40 MG TAB PO SCH (21:50)
[2022-07-28] MEDS: Famotidine 20 MG TAB PO SCH (21:50)
[2022-07-28 22:17] LABS: Reticulocyte Count 1.7 % (0.5-1.5)
[2022-07-29] MEDS: Famotidine 20 MG TAB PO SCH ×2 (08:55→20:27)
[2022-07-29] MEDS: Furosemide 20 MG TAB PO SCH (08:58)
[2022-07-29] MEDS: Metoprolol Tartrate 50 MG TAB PO SCH ×2 (08:58→20:26)
[2022-07-29] MEDS: NIFEdipine XL 30 MG TAB PO SCH (08:59)
[2022-07-29] MEDS: Ascorbic Acid 500 mg Chewable Tablet PO SCH (09:00)
[2022-07-29] MEDS: Heparin 5,000 UNITS/ML VIAL SC SCH ×3 (09:00→20:00)
[2022-07-29] MEDS: Folic Acid 1 MG TAB PO SCH (09:00)
[2022-07-29] MEDS: Lantus 1000 UNITS/10 ML VIAL SC SCH (09:01)
[2022-07-29] MEDS: Polyethylene Glycol 3350 17 GM Packet PO SCH (09:02)
[2022-07-29] MEDS: Multivitamins CHEW w/Iron Tablet PO SCH (09:46)
[2022-07-29] MEDS: HumaLOG 300 UNITS/3 ML VIAL SC PRN (11:58)
[2022-07-29] MEDS: Atorvastatin Calcium 40 MG TAB PO SCH (20:27)
[2022-07-30 05:37] LABS: Anion Gap 14 mmol/L (10-20); BUN (Urea Nitrogen) 32 mg/dL (9.8-20.1); Calc. Creatinine Clearance 24 mL/min (70-130); Calcium 7.4 mg/dL (7.8-10.44); Carbon Dioxide 20 mmol/L (22-29); Chloride 112 mmol/L (98-107); Estimated GFR 23; Glucose 155 mg/dL (70-105); Magnesium 1.5 mg/dL (1.6-2.6); Potassium 3.3 mmol/L (3.5-5.1); Sodium 143 mmol/L (136-145)
[2022-07-30] MEDS: Famotidine 20 MG TAB PO SCH (08:55)
[2022-07-30] MEDS: NIFEdipine XL 30 MG TAB PO SCH (08:56)
[2022-07-30] MEDS: Furosemide 20 MG TAB PO SCH (08:56)
[2022-07-30] MEDS: Ascorbic Acid 500 mg Chewable Tablet PO SCH (08:57)
[2022-07-30] MEDS: Lantus 1000 UNITS/10 ML VIAL SC SCH (08:58)
[2022-07-30] MEDS: Metoprolol Tartrate 50 MG TAB PO SCH ×2 (08:59→20:21)
[2022-07-30] MEDS: Polyethylene Glycol 3350 17 GM Packet PO SCH (09:00)
[2022-07-30] MEDS: Folic Acid 1 MG TAB PO SCH (09:00)
[2022-07-30] MEDS: Multivitamins CHEW w/Iron Tablet PO SCH (09:02)
[2022-07-30] MEDS: Heparin 5,000 UNITS/ML VIAL SC SCH ×3 (09:03→20:22)
[2022-07-30] MEDS: HumaLOG 300 UNITS/3 ML VIAL SC PRN (11:49)
[2022-07-30] MEDS ORDERED: Magnesium 2 GM/50 ML(in water) 2 GM in Premix Bag 1 BAG IVPB SCH (14:15)
[2022-07-30] MEDS ORDERED: Potassium Chloride 20 MEQ TAB PO SCH (14:15)
[2022-07-30] MEDS ORDERED: Metamucil PACK PO SCH (15:00)
[2022-07-30] MEDS: Atorvastatin Calcium 40 MG TAB PO SCH (20:21)
[2022-07-31 06:08] LABS: Anion Gap 13 mmol/L (10-20); BUN (Urea Nitrogen) 32 mg/dL (9.8-20.1); Calc. Creatinine Clearance 25 mL/min (70-130); Calcium 7.6 mg/dL (7.8-10.44); Carbon Dioxide 20 mmol/L (22-29); Chloride 114 mmol/L (98-107); Estimated GFR 24; Glucose 130 mg/dL (70-105); Magnesium 1.8 mg/dL (1.6-2.6); Phosphorus 3.6 mg/dL (2.3-4.7); Potassium 3.7 mmol/L (3.5-5.1); Sodium 143 mmol/L (136-145)
[2022-07-31] MEDS: Folic Acid 1 MG TAB PO SCH (09:26)
[2022-07-31] MEDS: Metoprolol Tartrate 50 MG TAB PO SCH ×2 (09:27→20:30)
[2022-07-31] MEDS: Multivitamins CHEW w/Iron Tablet PO SCH (09:27)
[2022-07-31] MEDS: NIFEdipine XL 30 MG TAB PO SCH (09:27)
[2022-07-31] MEDS: Famotidine 20 MG TAB PO SCH (09:27)
[2022-07-31] MEDS: Ascorbic Acid 500 mg Chewable Tablet PO SCH (09:27)
[2022-07-31] MEDS: Furosemide 20 MG TAB PO SCH (09:27)
[2022-07-31] MEDS: Lantus 1000 UNITS/10 ML VIAL SC SCH (09:28)
[2022-07-31] MEDS: Metamucil PACK PO SCH (09:28)
[2022-07-31] MEDS: Heparin 5,000 UNITS/ML VIAL SC SCH ×3 (09:28→20:31)
[2022-07-31] MEDS: Polyethylene Glycol 3350 17 GM Packet PO SCH (09:28)
[2022-07-31] MEDS: HumaLOG 300 UNITS/3 ML VIAL SC PRN (11:49)
[2022-07-31] MEDS ORDERED: Polyethylene Glycol 3350 17 GM Packet PO PRN (14:12)
[2022-07-31] MEDS: Atorvastatin Calcium 40 MG TAB PO SCH (20:30)
[2022-08-01] MEDS: HumaLOG 300 UNITS/3 ML VIAL SC PRN (05:29)
[2022-08-01] MEDS: Heparin 5,000 UNITS/ML VIAL SC SCH ×3 (08:21→20:51)
[2022-08-01] MEDS: Multivitamins CHEW w/Iron Tablet PO SCH (08:22)
[2022-08-01] MEDS: NIFEdipine XL 30 MG TAB PO SCH (08:22)
[2022-08-01] MEDS: Metoprolol Tartrate 50 MG TAB PO SCH ×2 (08:22→20:50)
[2022-08-01] MEDS: Metamucil PACK PO SCH (08:22)
[2022-08-01] MEDS: Ascorbic Acid 500 mg Chewable Tablet PO SCH (08:23)
[2022-08-01] MEDS: Furosemide 20 MG TAB PO SCH (08:23)
[2022-08-01] MEDS: Folic Acid 1 MG TAB PO SCH (08:23)
[2022-08-01] MEDS: Famotidine 20 MG TAB PO SCH (08:23)
[2022-08-01] MEDS: Lantus 1000 UNITS/10 ML VIAL SC SCH (08:26)
[2022-08-01] MEDS: Atorvastatin Calcium 40 MG TAB PO SCH (20:50)
[2022-08-02 06:23] LABS: Anion Gap 14 mmol/L (10-20); BUN (Urea Nitrogen) 32 mg/dL (9.8-20.1); Calc. Creatinine Clearance 24 mL/min (70-130); Calcium 7.5 mg/dL (7.8-10.44); Carbon Dioxide 19 mmol/L (22-29); Chloride 112 mmol/L (98-107); Estimated GFR 23; Glucose 131 mg/dL (70-105); Magnesium 1.7 mg/dL (1.6-2.6); Potassium 3.6 mmol/L (3.5-5.1); Sodium 141 mmol/L (136-145)
[2022-08-02] MEDS: Metoprolol Tartrate 50 MG TAB PO SCH ×2 (08:58→20:44)
[2022-08-02] MEDS: NIFEdipine XL 30 MG TAB PO SCH (08:59)
[2022-08-02] MEDS: Potassium Chloride 10 MEQ TAB PO SCH ×2 (08:59→18:00)
[2022-08-02] MEDS: Famotidine 20 MG TAB PO SCH (08:59)
[2022-08-02] MEDS: Folic Acid 1 MG TAB PO SCH (09:00)
[2022-08-02] MEDS: Furosemide 20 MG TAB PO SCH (09:00)
[2022-08-02] MEDS: Lantus 1000 UNITS/10 ML VIAL SC SCH (09:00)
[2022-08-02] MEDS: Ascorbic Acid 500 mg Chewable Tablet PO SCH (09:00)
[2022-08-02] MEDS: Metamucil PACK PO SCH (09:00)
[2022-08-02] MEDS: Heparin 5,000 UNITS/ML VIAL SC SCH ×3 (09:01→20:41)
[2022-08-02] MEDS ORDERED: Labetalol HCl 100 MG/20 ML VIAL SLOW IVP PRN (10:19)
[2022-08-02] MEDS: Multivitamins CHEW w/Iron Tablet PO SCH (10:20)
[2022-08-02] MEDS ORDERED: Simethicone Chewable 80 MG TAB PO SCH (10:30)
[2022-08-02] MEDS ORDERED: Acetaminophen 500 MG TAB PO SCH (10:30)
[2022-08-02] MEDS ORDERED: hydrALAZINE 25 MG TAB PO SCH (11:15)
[2022-08-02] MEDS: Atorvastatin Calcium 40 MG TAB PO SCH (20:44)
[2022-08-03] MEDS: HumaLOG 300 UNITS/3 ML VIAL SC PRN (05:49)
[2022-08-03 05:56] VITALS: BMI 22.7
[2022-08-03 08:07] VITALS: BP 120/79; TEMP 97.5
[2022-08-03] MEDS: Multivitamins CHEW w/Iron Tablet PO SCH (09:16)
[2022-08-03] MEDS: Furosemide 20 MG TAB PO SCH (09:16)
[2022-08-03] MEDS: Ascorbic Acid 500 mg Chewable Tablet PO SCH (09:16)
[2022-08-03] MEDS: Metoprolol Tartrate 50 MG TAB PO SCH (09:16)
[2022-08-03] MEDS: Famotidine 20 MG TAB PO SCH (09:16)
[2022-08-03] MEDS: NIFEdipine XL 30 MG TAB PO SCH (09:16)
[2022-08-03] MEDS: Lantus 1000 UNITS/10 ML VIAL SC SCH (09:17)
[2022-08-03] MEDS: Potassium Chloride 10 MEQ TAB PO SCH (09:17)
[2022-08-03] MEDS: Heparin 5,000 UNITS/ML VIAL SC SCH (09:17)
[2022-08-03] MEDS: Folic Acid 1 MG TAB PO SCH (09:17)
[2022-08-03] MEDS: Metamucil PACK PO SCH (09:18)
== END 2022-08-03 14:25 | disposition home or self-care (01) | DRG 948 ==
LOC: UNDOADMIN 15:28 → NAV ACUTE 15:28
PROVIDERS: ADMIT Family Medicine; ATTEND Family Medicine
DX: R53.81 Other malaise (principal); N18.4 Chronic kidney disease, stage 4 (severe); E46 Unspecified protein-calorie malnutrition; I13.0 Hypertensive heart and chronic kidney disease with heart failure and stage 1 through stage 4 chronic kidney disease, or unspecified chronic kidney disease; I50.22 Chronic systolic (congestive) heart failure; E87.6 Hypokalemia; E87.8 Other disorders of electrolyte and fluid balance, not elsewhere classified; R09.02 Hypoxemia; D63.1 Anemia in chronic kidney disease; E83.42 Hypomagnesemia; E11.22 Type 2 diabetes mellitus with diabetic chronic kidney disease; Z87.440 Personal history of urinary (tract) infections; Z68.22 Body mass index [BMI] 22.0-22.9, adult; Z88.6 Allergy status to analgesic agent; Z90.89 Acquired absence of other organs; Z90.710 Acquired absence of both cervix and uterus
CPT/HCPCS: 36415; 36416; 80048; 80053; 83540; 83735; 83880; 84100; 84443; 85025; 85046; J1644; J1815; J3475

== ENCOUNTER 2022-09-18 08:01 | Emergency (ER) | payer MEDICARE, OTHER ==
[2022-09-18] MEDS ORDERED: Metoprolol Tartrate 50 MG TAB ONE (09:13)
[2022-09-18] MEDS ORDERED: NIFEdipine XL 30 MG TAB ONE (09:13)
[2022-09-18] MEDS ORDERED: Furosemide 40 MG/4 ML VIAL ONE ×2 (10:45→16:11)
[2022-09-18 10:46] LABS: #Basophils 0.1 thou/uL (0.0-0.2); #Eosinphils 0.3 thou/uL (0.0-0.7); #Lymphocytes 1.5 thou/uL (1.20-3.40); #Monocytes 0.7 thou/uL (0.11-0.59); #Neutrophils 6.2 thou/uL (1.40-6.50); %Basophils 1.5 % (0.0-1.0); %Eosinophils 3.9 % (0.0-10.0); %Lymphocytes 17.2 % (21.0-51.0); %Neutrophils 69.4 % (42.0-75.0); Hemoglobin 9.1 g/dL (12.0-16.0); Mean Corpuscular HGB CONC 30.7 g/dL (32.0-36.0); Mean Corpuscular Hemoglobin 31.9 pg (27.0-31.0); Mean Platelet Volume 8.5 fL (7.4-10.4); Platelet Count 357 10x3/uL (130-400); Red Blood Cell (RBC) Count 2.85 mill/uL (4.20-5.40); White Blood Cell (WBC) Count 8.9 10x3/uL (4.8-10.8)
[2022-09-18 11:00] LABS: ALT (SGPT) 65 U/L (8-55); AST (SGOT) 34 U/L (5-34); Alkaline Phosphatase 797 U/L (40-110); Anion Gap 11 mmol/L (10-20); BUN (Urea Nitrogen) 44 mg/dL (9.8-20.1); Bilirubin, Total 0.2 mg/dL (0.2-1.2); Calc. Creatinine Clearance 0 mL/min (70-130); Carbon Dioxide 15 mmol/L (22-29); Chloride 120 mmol/L (98-107); Estimated GFR 15; Globulin 3.3 g/dL (2.4-3.5); Glucose 133 mg/dL (70-105); Potassium 3.6 mmol/L (3.5-5.1); Protein, Total 5.3 g/dL (6.0-8.3); Sodium 142 mmol/L (136-145)
[2022-09-18 13:11] LABS: SARS-CoV-2 NAA Rapid Test Not Detected (NotDetected)
== END 2022-09-18 19:42 | disposition short-term general hospital (02) ==
LOC: NAV ERS 08:01
DX: E87.70 Fluid overload, unspecified (principal); I12.9 Hypertensive chronic kidney disease with stage 1 through stage 4 chronic kidney disease, or unspecified chronic kidney disease; E11.22 Type 2 diabetes mellitus with diabetic chronic kidney disease; N18.9 Chronic kidney disease, unspecified; N17.9 Acute kidney failure, unspecified; J91.8 Pleural effusion in other conditions classified elsewhere; D64.9 Anemia, unspecified; R79.1 Abnormal coagulation profile; E78.5 Hyperlipidemia, unspecified; Z79.4 Long term (current) use of insulin; Z79.899 Other long term (current) drug therapy; Z20.822 Contact with and (suspected) exposure to COVID-19
CPT/HCPCS: 71045; 80053; 83880; 84484; 85025; 85379; 94760; 96374; 96376; J1940

== ENCOUNTER 2022-10-24 07:59 | Inpatient (IN) | payer OTHER ==
[2022-10-24] MEDS ORDERED: Ventolin HFA Inhaler 60 PUFF INHALER INH PRN (12:11)
[2022-10-24] MEDS ORDERED: Ondansetron ODT 4 MG TAB SL PRN (12:14)
[2022-10-24] MEDS ORDERED: Senokot S 8.6-50 MG TAB PO PRN (12:14)
[2022-10-24] MEDS ORDERED: Bisacodyl 5 MG TAB PO PRN (12:14)
[2022-10-24] MEDS ORDERED: Acetaminophen 325 MG TAB PO PRN (12:14)
[2022-10-24] MEDS ORDERED: EPOETIN ALFA-EPBX (ESRD) 10,000 UNIT/ML VIAL SC SCH (12:15)
[2022-10-24] MEDS ORDERED: Dextrose 50% Abboject 50 ML SYRINGE SLOW IVP PRN (12:25)
[2022-10-24] MEDS ORDERED: HumaLOG 300 UNITS/3 ML VIAL SC PRN ×2 (12:25)
[2022-10-24] MEDS: Acetaminophen 325 MG TAB PO PRN (13:21)
[2022-10-24] MEDS: Torsemide 20 MG TAB PO SCH (13:22)
[2022-10-24] MEDS ORDERED: EPOETIN ALFA-EPBX (NON-ESRD) 10,000 UNIT/ML VIAL SC SCH (14:00)
[2022-10-24] MEDS ORDERED: Non-Formulary Item 1 EACH (Atorvastatin Calcium [Atorvastatin Calcium] 80 MG Tablet) PO SCH (21:00)
[2022-10-24] MEDS: Lantus 1000 UNITS/10 ML VIAL SC SCH (21:05)
[2022-10-24] MEDS: Sodium Bicarbonate Tab 325 MG TAB PO SCH (21:05)
[2022-10-24] MEDS: Metoprolol Tartrate 50 MG TAB PO SCH (21:05)
[2022-10-24] MEDS: Atorvastatin Calcium 40 MG TAB PO SCH (21:05)
[2022-10-25] MEDS: Acetaminophen 325 MG TAB PO PRN ×2 (04:37→08:29)
[2022-10-25 05:59] LABS: #Basophils 0.1 thou/uL (0.0-0.2); #Eosinphils 0.4 thou/uL (0.0-0.7); #Lymphocytes 1.7 thou/uL (1.20-3.40); #Monocytes 0.8 thou/uL (0.11-0.59); #Neutrophils 5.8 thou/uL (1.40-6.50); %Basophils 1.1 % (0.0-1.0); %Eosinophils 5.1 % (0.0-10.0); %Lymphocytes 19.1 % (21.0-51.0); %Monocytes 8.5 % (0.0-10.0); %Neutrophils 66.2 % (42.0-75.0); Mean Corpuscular HGB CONC 31.1 g/dL (32.0-36.0); Mean Corpuscular Hemoglobin 33.1 pg (27.0-31.0); Mean Platelet Volume 7.2 fL (7.4-10.4); Platelet Count 407 10x3/uL (130-400); RBC Distribution Width 16.6 % (11.5-14.5); Red Blood Cell (RBC) Count 2.73 mill/uL (4.20-5.40); White Blood Cell (WBC) Count 8.8 10x3/uL (4.8-10.8)
[2022-10-25 06:16] LABS: ALT (SGPT) 20 U/L (8-55); AST (SGOT) 17 U/L (5-34); Albumin 1.9 g/dL (3.5-5.0); Alkaline Phosphatase 312 U/L (40-110); Anion Gap 12 mmol/L (10-20); BUN (Urea Nitrogen) 52 mg/dL (9.8-20.1); Bilirubin, Total 0.2 mg/dL (0.2-1.2); Calc. Creatinine Clearance 17 mL/min (70-130); Calcium 7.3 mg/dL (7.8-10.44); Carbon Dioxide 18 mmol/L (22-29); Chloride 114 mmol/L (98-107); Estimated GFR 11; Globulin 3.2 g/dL (2.4-3.5); Glucose 89 mg/dL (70-105); Protein, Total 5.1 g/dL (6.0-8.3); Sodium 140 mmol/L (136-145)
[2022-10-25] MEDS: Metoprolol Tartrate 50 MG TAB PO SCH ×2 (08:26→20:27)
[2022-10-25] MEDS: Torsemide 20 MG TAB PO SCH ×2 (08:26→15:31)
[2022-10-25] MEDS: Sodium Bicarbonate Tab 325 MG TAB PO SCH ×2 (08:26→20:27)
[2022-10-25] MEDS: NIFEdipine XL 30 MG TAB PO SCH (08:26)
[2022-10-25] MEDS: Magnesium Oxide 400 MG TAB PO SCH (08:26)
[2022-10-25] MEDS ORDERED: NIFEDIPINE 60 MG PO SCH (09:00)
[2022-10-25] MEDS ORDERED: hydrALAZINE 25 MG TAB PO PRN (10:19)
[2022-10-25] MEDS ORDERED: Calcium Carbonate 500 MG ChewTAB PO PRN (10:19)
[2022-10-25] MEDS ORDERED: cloNIDine 0.1 MG TAB ONE (13:10)
[2022-10-25] MEDS ORDERED: cloNIDine 0.1 MG TAB PO SCH (13:30)
[2022-10-25] MEDS ORDERED: cloNIDine 0.1 MG TAB PO PRN (17:52)
[2022-10-25] MEDS: Atorvastatin Calcium 40 MG TAB PO SCH (20:27)
[2022-10-25] MEDS: Lantus 1000 UNITS/10 ML VIAL SC SCH (21:29)
[2022-10-26] MEDS: Acetaminophen 325 MG TAB PO PRN ×2 (02:07→06:07)
[2022-10-26 02:23] VITALS: BMI 28.1
[2022-10-26 06:05] LABS: Anion Gap 12 mmol/L (10-20); BUN (Urea Nitrogen) 53 mg/dL (9.8-20.1); Calc. Creatinine Clearance 16 mL/min (70-130); Calcium 7.4 mg/dL (7.8-10.44); Carbon Dioxide 17 mmol/L (22-29); Chloride 112 mmol/L (98-107); Estimated GFR 11; Glucose 61 mg/dL (70-105); Sodium 137 mmol/L (136-145)
[2022-10-26] MEDS ORDERED: Lantus 1000 UNITS/10 ML VIAL SC SCH (07:49)
[2022-10-26] MEDS: Magnesium Oxide 400 MG TAB PO SCH (08:10)
[2022-10-26] MEDS: NIFEdipine XL 30 MG TAB PO SCH (08:11)
[2022-10-26] MEDS: Metoprolol Tartrate 50 MG TAB PO SCH (08:11)
[2022-10-26] MEDS: Torsemide 20 MG TAB PO SCH (08:11)
[2022-10-26] MEDS: Sodium Bicarbonate Tab 325 MG TAB PO SCH (08:11)
[2022-10-26 08:12] VITALS: BP 141/71
[2022-10-26 08:19] VITALS: TEMP 97.6
== END 2022-10-26 12:35 | disposition short-term general hospital (02) | DRG 948 ==
LOC: NAV ACUTE 10:25
PROVIDERS: ADMIT Family Medicine; ATTEND Family Medicine
DX: R53.81 Other malaise (principal); I13.2 Hypertensive heart and chronic kidney disease with heart failure and with stage 5 chronic kidney disease, or end stage renal disease; N18.5 Chronic kidney disease, stage 5; I50.32 Chronic diastolic (congestive) heart failure; E78.5 Hyperlipidemia, unspecified; D47.2 Monoclonal gammopathy; E11.649 Type 2 diabetes mellitus with hypoglycemia without coma; Z20.822 Contact with and (suspected) exposure to COVID-19; R53.1 Weakness; E11.22 Type 2 diabetes mellitus with diabetic chronic kidney disease; Z90.710 Acquired absence of both cervix and uterus; Z90.89 Acquired absence of other organs; Z88.5 Allergy status to narcotic agent; Z82.49 Family history of ischemic heart disease and other diseases of the circulatory system; Z83.3 Family history of diabetes mellitus
CPT/HCPCS: 36416; 71045; 80048; 80053; 85025; 36415-59; J1815; Q5106; U0003; U0005

== ENCOUNTER 2022-11-01 10:48 | Inpatient (IN) | payer OTHER ==
[2022-11-01] MEDS ORDERED: Ondansetron ODT 4 MG TAB PO PRN (19:53)
[2022-11-01] MEDS ORDERED: Senokot S 8.6-50 MG TAB PO PRN (19:55)
[2022-11-01] MEDS ORDERED: Bisacodyl 5 MG TAB PO PRN (19:55)
[2022-11-01] MEDS ORDERED: HumaLOG 300 UNITS/3 ML VIAL SC PRN ×2 (19:57)
[2022-11-01] MEDS ORDERED: Dextrose 50% Abboject 50 ML SYRINGE SLOW IVP PRN (19:57)
[2022-11-01] MEDS ORDERED: NIFEdipine XL 30 MG TAB PO SCH (22:00)
[2022-11-01] MEDS ORDERED: Heparin 5,000 UNITS/ML VIAL SC SCH (22:00)
[2022-11-01] MEDS ORDERED: Metoprolol Tartrate 50 MG TAB PO SCH (22:00)
[2022-11-01] MEDS ORDERED: Lantus 1000 UNITS/10 ML VIAL SC SCH (22:00)
[2022-11-01] MEDS ORDERED: Atorvastatin Calcium 40 MG TAB PO SCH (22:00)
[2022-11-01] MEDS: Acetaminophen 325 MG TAB PO PRN (23:21)
[2022-11-02] MEDS: Acetaminophen 325 MG TAB PO PRN (04:55)
[2022-11-02 06:51] LABS: AST (SGOT) 58 U/L (5-34); Alkaline Phosphatase 381 U/L (40-110); Anion Gap 14 mmol/L (10-20); BUN (Urea Nitrogen) 26 mg/dL (9.8-20.1); Bilirubin, Total 0.2 mg/dL (0.2-1.2); Calc. Creatinine Clearance 24 mL/min (70-130); Calcium 7.7 mg/dL (7.8-10.44); Carbon Dioxide 17 mmol/L (22-29); Chloride 110 mmol/L (98-107); Estimated GFR 18; Globulin 3.4 g/dL (2.4-3.5); Protein, Total 5.4 g/dL (6.0-8.3); Sodium 137 mmol/L (136-145)
[2022-11-02 06:56] LABS: #Basophils 0.1 thou/uL (0.0-0.2); #Eosinphils 0.4 thou/uL (0.0-0.7); #Lymphocytes 1.4 thou/uL (1.20-3.40); #Monocytes 0.4 thou/uL (0.11-0.59); #Neutrophils 3.2 thou/uL (1.40-6.50); %Basophils 1.1 % (0.0-1.0); %Lymphocytes 25.7 % (21.0-51.0); %Monocytes 6.6 % (0.0-10.0); %Neutrophils 59.6 % (42.0-75.0); Hemoglobin 11.8 g/dL (12.0-16.0); Mean Corpuscular HGB CONC 31.4 g/dL (32.0-36.0); Mean Corpuscular Hemoglobin 34.1 pg (27.0-31.0); Mean Platelet Volume 7.9 fL (7.4-10.4); Platelet Count 202 10x3/uL (130-400); RBC Distribution Width 16.6 % (11.5-14.5); Red Blood Cell (RBC) Count 3.45 mill/uL (4.20-5.40); White Blood Cell (WBC) Count 5.4 10x3/uL (4.8-10.8)
[2022-11-02 07:04] LABS: ALT (SGPT) 30 U/L (8-55); Glucose 98 mg/dL (70-105)
[2022-11-02] MEDS: Magnesium Oxide 400 MG TAB PO SCH (07:49)
[2022-11-02] MEDS: Calcium Carbonate 500 MG TAB PO SCH (07:49)
[2022-11-02] MEDS: Metoprolol Tartrate 50 MG TAB PO SCH ×2 (07:50→20:33)
[2022-11-02] MEDS: NIFEdipine XL 30 MG TAB PO SCH ×2 (07:50→20:33)
[2022-11-02] MEDS: Heparin 5,000 UNITS/ML VIAL SC SCH ×3 (07:51→20:32)
[2022-11-02] MEDS: Epoetin (ESRD) 20,000 UNITS/ML SC SCH (07:53)
[2022-11-02] MEDS ORDERED: FLU VACC QS2022-23(6MOS UP)/PF 60 MCG/0.5 ML SYRINGE IM ONE (09:00)
[2022-11-02] MEDS: Atorvastatin Calcium 40 MG TAB PO SCH (20:33)
[2022-11-02] MEDS: Lantus 1000 UNITS/10 ML VIAL SC SCH (20:34)
[2022-11-03] MEDS: Metoprolol Tartrate 50 MG TAB PO SCH ×2 (08:17→21:58)
[2022-11-03] MEDS: NIFEdipine XL 30 MG TAB PO SCH ×2 (08:18→21:58)
[2022-11-03] MEDS: Heparin 5,000 UNITS/ML VIAL SC SCH ×3 (08:19→21:54)
[2022-11-03] MEDS: Magnesium Oxide 400 MG TAB PO SCH (08:19)
[2022-11-03] MEDS: Calcium Carbonate 500 MG TAB PO SCH (08:19)
[2022-11-03] MEDS: Acetaminophen 325 MG TAB PO PRN (10:35)
[2022-11-03] MEDS: hydrALAZINE 25 MG TAB PO SCH (21:57)
[2022-11-03] MEDS: Lantus 1000 UNITS/10 ML VIAL SC SCH (21:58)
[2022-11-03] MEDS: Atorvastatin Calcium 40 MG TAB PO SCH (21:58)
[2022-11-04] MEDS: NIFEdipine XL 30 MG TAB PO SCH ×2 (08:43→20:27)
[2022-11-04] MEDS: Calcium Carbonate 500 MG TAB PO SCH (08:44)
[2022-11-04] MEDS: hydrALAZINE 25 MG TAB PO SCH ×2 (08:44→20:27)
[2022-11-04] MEDS: Magnesium Oxide 400 MG TAB PO SCH (08:44)
[2022-11-04] MEDS: Metoprolol Tartrate 50 MG TAB PO SCH ×2 (08:44→20:26)
[2022-11-04] MEDS: Heparin 5,000 UNITS/ML VIAL SC SCH ×3 (08:45→20:26)
[2022-11-04] MEDS ORDERED: Hydrocortisone 1% Cream 30 GM TUBE TOP PRN (11:13)
[2022-11-04] MEDS ORDERED: hydrOXYzine 25 MG TAB PO PRN (11:13)
[2022-11-04] MEDS: Atorvastatin Calcium 40 MG TAB PO SCH (20:26)
[2022-11-04] MEDS: Lantus 1000 UNITS/10 ML VIAL SC SCH (20:27)
[2022-11-05] MEDS: Calcium Carbonate 500 MG TAB PO SCH (08:44)
[2022-11-05] MEDS: NIFEdipine XL 30 MG TAB PO SCH ×2 (08:44→20:32)
[2022-11-05] MEDS: Metoprolol Tartrate 50 MG TAB PO SCH ×2 (08:45→20:32)
[2022-11-05] MEDS: hydrALAZINE 25 MG TAB PO SCH ×2 (08:45→20:32)
[2022-11-05] MEDS: Magnesium Oxide 400 MG TAB PO SCH (08:45)
[2022-11-05] MEDS: Heparin 5,000 UNITS/ML VIAL SC SCH ×3 (08:50→20:32)
[2022-11-05] MEDS: Lantus 1000 UNITS/10 ML VIAL SC SCH (20:32)
[2022-11-05] MEDS: Atorvastatin Calcium 40 MG TAB PO SCH (20:32)
[2022-11-06] MEDS: Magnesium Oxide 400 MG TAB PO SCH (08:01)
[2022-11-06] MEDS: Calcium Carbonate 500 MG TAB PO SCH (08:01)
[2022-11-06] MEDS: hydrALAZINE 25 MG TAB PO SCH ×2 (08:01→20:57)
[2022-11-06] MEDS: Heparin 5,000 UNITS/ML VIAL SC SCH ×3 (08:01→20:57)
[2022-11-06] MEDS: NIFEdipine XL 30 MG TAB PO SCH ×2 (08:01→20:57)
[2022-11-06] MEDS: Metoprolol Tartrate 50 MG TAB PO SCH ×2 (08:05→20:57)
[2022-11-06] MEDS ORDERED: NIFEdipine XL 30 MG TAB PO SCH (09:00)
[2022-11-06] MEDS: Lantus 1000 UNITS/10 ML VIAL SC SCH (20:56)
[2022-11-06] MEDS: Atorvastatin Calcium 40 MG TAB PO SCH (20:57)
[2022-11-07] MEDS: NIFEdipine XL 30 MG TAB PO SCH ×2 (09:11→20:49)
[2022-11-07] MEDS: Calcium Carbonate 500 MG TAB PO SCH (09:12)
[2022-11-07] MEDS: Metoprolol Tartrate 50 MG TAB PO SCH ×2 (09:12→20:49)
[2022-11-07] MEDS: Magnesium Oxide 400 MG TAB PO SCH (09:12)
[2022-11-07] MEDS: hydrALAZINE 25 MG TAB PO SCH ×3 (09:14→20:49)
[2022-11-07] MEDS: Heparin 5,000 UNITS/ML VIAL SC SCH ×3 (09:14→20:50)
[2022-11-07] MEDS: Atorvastatin Calcium 40 MG TAB PO SCH (20:49)
[2022-11-07] MEDS: Lantus 1000 UNITS/10 ML VIAL SC SCH (20:50)
[2022-11-08 06:15] LABS: #Basophils 0.1 thou/uL (0.0-0.2); #Eosinphils 0.6 thou/uL (0.0-0.7); #Lymphocytes 2.3 thou/uL (1.20-3.40); #Monocytes 0.7 thou/uL (0.11-0.59); #Neutrophils 4.3 thou/uL (1.40-6.50); %Basophils 1.4 % (0.0-1.0); %Eosinophils 7.7 % (0.0-10.0); %Lymphocytes 28.7 % (21.0-51.0); %Monocytes 8.8 % (0.0-10.0); %Neutrophils 53.3 % (42.0-75.0); Hemoglobin 9.1 g/dL (12.0-16.0); Mean Corpuscular HGB CONC 30.6 g/dL (32.0-36.0); Mean Corpuscular Hemoglobin 33.4 pg (27.0-31.0); Mean Platelet Volume 8.1 fL (7.4-10.4); Platelet Count 298 10x3/uL (130-400); RBC Distribution Width 16.4 % (11.5-14.5); Red Blood Cell (RBC) Count 2.72 mill/uL (4.20-5.40); White Blood Cell (WBC) Count 8.1 10x3/uL (4.8-10.8)
[2022-11-08 06:25] LABS: Anion Gap 7 mmol/L (10-20); BUN (Urea Nitrogen) 23 mg/dL (9.8-20.1); Calc. Creatinine Clearance 26 mL/min (70-130); Calcium 8.1 mg/dL (7.8-10.44); Carbon Dioxide 29 mmol/L (22-29); Chloride 106 mmol/L (98-107); Estimated GFR 20; Glucose 79 mg/dL (70-105); Potassium 3.3 mmol/L (3.5-5.1); Sodium 139 mmol/L (136-145)
[2022-11-08] MEDS: Magnesium Oxide 400 MG TAB PO SCH (09:24)
[2022-11-08] MEDS: NIFEdipine XL 30 MG TAB PO SCH ×2 (09:24→21:45)
[2022-11-08] MEDS: Calcium Carbonate 500 MG TAB PO SCH (09:24)
[2022-11-08] MEDS: Heparin 5,000 UNITS/ML VIAL SC SCH ×3 (09:24→21:47)
[2022-11-08] MEDS: Metoprolol Tartrate 50 MG TAB PO SCH ×2 (09:24→21:45)
[2022-11-08] MEDS: hydrALAZINE 25 MG TAB PO SCH ×2 (09:24→21:47)
[2022-11-08] MEDS: Atorvastatin Calcium 40 MG TAB PO SCH ×2 (21:45→21:46)
[2022-11-08] MEDS: Lantus 1000 UNITS/10 ML VIAL SC SCH (21:47)
[2022-11-09] MEDS: Calcium Carbonate 500 MG TAB PO SCH (08:09)
[2022-11-09] MEDS: NIFEdipine XL 30 MG TAB PO SCH ×2 (08:10→21:11)
[2022-11-09] MEDS: Metoprolol Tartrate 50 MG TAB PO SCH ×2 (08:10→21:11)
[2022-11-09] MEDS: hydrALAZINE 25 MG TAB PO SCH ×2 (08:10→21:11)
[2022-11-09] MEDS: Magnesium Oxide 400 MG TAB PO SCH (08:10)
[2022-11-09] MEDS: Heparin 5,000 UNITS/ML VIAL SC SCH ×3 (08:11→21:14)
[2022-11-09] MEDS: Epoetin (ESRD) 20,000 UNITS/ML SC SCH (08:11)
[2022-11-09] MEDS: Atorvastatin Calcium 40 MG TAB PO SCH (21:10)
[2022-11-09] MEDS: Lantus 1000 UNITS/10 ML VIAL SC SCH (21:22)
[2022-11-10 05:57] LABS: #Basophils 0.1 thou/uL (0.0-0.2); #Eosinphils 0.5 thou/uL (0.0-0.7); #Lymphocytes 2.3 thou/uL (1.20-3.40); #Monocytes 0.7 thou/uL (0.11-0.59); %Basophils 1.1 % (0.0-1.0); %Eosinophils 6.2 % (0.0-10.0); %Lymphocytes 26.8 % (21.0-51.0); %Monocytes 7.7 % (0.0-10.0); %Neutrophils 58.2 % (42.0-75.0); Mean Corpuscular HGB CONC 32.5 g/dL (32.0-36.0); Mean Corpuscular Hemoglobin 34.2 pg (27.0-31.0); Mean Platelet Volume 8.1 fL (7.4-10.4); Platelet Count 321 10x3/uL (130-400); Red Blood Cell (RBC) Count 2.64 mill/uL (4.20-5.40); White Blood Cell (WBC) Count 8.5 10x3/uL (4.8-10.8)
[2022-11-10 06:04] LABS: SARS-CoV-2 NAA Rapid Test Not Detected (NotDetected)
[2022-11-10 06:13] LABS: Anion Gap 8 mmol/L (10-20); BUN (Urea Nitrogen) 22 mg/dL (9.8-20.1); Calc. Creatinine Clearance 25 mL/min (70-130); Carbon Dioxide 31 mmol/L (22-29); Chloride 103 mmol/L (98-107); Estimated GFR 19; Glucose 89 mg/dL (70-105); Potassium 3.3 mmol/L (3.5-5.1); Sodium 139 mmol/L (136-145)
[2022-11-10 07:13] VITALS: BMI 27.5
[2022-11-10] MEDS: Magnesium Oxide 400 MG TAB PO SCH (08:48)
[2022-11-10] MEDS: Calcium Carbonate 500 MG TAB PO SCH (08:53)
[2022-11-10] MEDS: hydrALAZINE 25 MG TAB PO SCH ×2 (09:00→21:21)
[2022-11-10] MEDS: Metoprolol Tartrate 50 MG TAB PO SCH ×2 (09:00→21:20)
[2022-11-10] MEDS: NIFEdipine XL 30 MG TAB PO SCH ×2 (09:01→21:20)
[2022-11-10] MEDS: Heparin 5,000 UNITS/ML VIAL SC SCH ×3 (09:38→21:23)
[2022-11-10] MEDS: Atorvastatin Calcium 40 MG TAB PO SCH (21:21)
[2022-11-10] MEDS: Lantus 1000 UNITS/10 ML VIAL SC SCH (21:22)
[2022-11-11] MEDS: NIFEdipine XL 30 MG TAB PO SCH (08:35)
[2022-11-11] MEDS: Metoprolol Tartrate 50 MG TAB PO SCH (08:36)
[2022-11-11] MEDS: Magnesium Oxide 400 MG TAB PO SCH (08:36)
[2022-11-11] MEDS: hydrALAZINE 25 MG TAB PO SCH (08:36)
[2022-11-11] MEDS: Calcium Carbonate 500 MG TAB PO SCH (08:36)
[2022-11-11] MEDS: Heparin 5,000 UNITS/ML VIAL SC SCH (08:37)
[2022-11-11 08:40] VITALS: BP 122/78
[2022-11-11 09:27] VITALS: TEMP 97.6
== END 2022-11-11 12:29 | disposition home health service (06) | DRG 947 ==
LOC: NAV ACUTE 20:05
PROVIDERS: ADMIT Family Medicine; ATTEND Family Medicine
PROC: 5A1D70Z Performance of Urinary Filtration, Intermittent, Less than 6 Hours Per Day (ICD-10-PCS; principal; 2022-11-10)
DX: R53.81 Other malaise (principal); N18.6 End stage renal disease; I13.2 Hypertensive heart and chronic kidney disease with heart failure and with stage 5 chronic kidney disease, or end stage renal disease; I50.32 Chronic diastolic (congestive) heart failure; E46 Unspecified protein-calorie malnutrition; R53.1 Weakness; Z20.822 Contact with and (suspected) exposure to COVID-19; E78.5 Hyperlipidemia, unspecified; G89.29 Other chronic pain; D47.2 Monoclonal gammopathy; E11.22 Type 2 diabetes mellitus with diabetic chronic kidney disease; D63.1 Anemia in chronic kidney disease; M54.9 Dorsalgia, unspecified; K21.9 Gastro-esophageal reflux disease without esophagitis; E87.6 Hypokalemia; Z90.89 Acquired absence of other organs; Z90.710 Acquired absence of both cervix and uterus; Z99.2 Dependence on renal dialysis; Z88.6 Allergy status to analgesic agent; Z83.3 Family history of diabetes mellitus; Z82.49 Family history of ischemic heart disease and other diseases of the circulatory system; Z79.899 Other long term (current) drug therapy; Z79.4 Long term (current) use of insulin; Z68.27 Body mass index [BMI] 27.0-27.9, adult
CPT/HCPCS: 36415; 36416; 80048; 80053; 85025; 87811; J1644; J1815; Q4081; U0002

== ENCOUNTER 2023-01-04 13:55 | Inpatient (IN) | payer OTHER ==
[2023-01-05] MEDS ORDERED: Dextrose 50% Abboject 50 ML SYRINGE SLOW IVP PRN (15:17)
[2023-01-05] MEDS ORDERED: Midodrine HCl 5 MG TAB PO PRN (22:03)
[2023-01-05] MEDS: Heparin 5,000 UNITS/ML VIAL SC SCH (22:19)
[2023-01-05] MEDS: NIFEdipine XL 30 MG TAB PO SCH (22:23)
[2023-01-05] MEDS: Saccharomyces boulardii 250 MG CAP PO SCH (22:23)
[2023-01-05] MEDS: Metoprolol Tartrate 50 MG TAB PO SCH (22:23)
[2023-01-05] MEDS: hydrALAZINE 25 MG TAB PO SCH (22:23)
[2023-01-05] MEDS: Lantus 1000 UNITS/10 ML VIAL SC SCH (22:24)
[2023-01-05] MEDS: HumaLOG 300 UNITS/3 ML VIAL SC PRN (22:24)
[2023-01-05 23:42] LABS: SARS-CoV-2 NAA Rapid Test Not Detected (NotDetected)
[2023-01-06 05:52] LABS: #Basophils 0.1 thou/uL (0.0-0.2); #Eosinphils 0.4 thou/uL (0.0-0.7); #Lymphocytes 2.1 thou/uL (1.20-3.40); #Monocytes 1.1 thou/uL (0.11-0.59); #Neutrophils 10.3 thou/uL (1.40-6.50); %Basophils 1.1 % (0.0-1.0); %Eosinophils 2.5 % (0.0-10.0); %Lymphocytes 15.1 % (21.0-51.0); %Monocytes 7.9 % (0.0-10.0); %Neutrophils 73.4 % (42.0-75.0); Hemoglobin 8.3 g/dL (12.0-16.0); Mean Corpuscular HGB CONC 31.8 g/dL (32.0-36.0); Mean Corpuscular Hemoglobin 32.8 pg (27.0-31.0); Mean Platelet Volume 9.6 fL (7.4-10.4); Platelet Count 363 10x3/uL (130-400); RBC Distribution Width 18.2 % (11.5-14.5); Red Blood Cell (RBC) Count 2.53 mill/uL (4.20-5.40); White Blood Cell (WBC) Count 14.1 10x3/uL (4.8-10.8)
[2023-01-06 05:58] LABS: ALT (SGPT) 34 U/L (8-55); AST (SGOT) 30 U/L (5-34); Albumin 2.3 g/dL (3.5-5.0); Alkaline Phosphatase 725 U/L (40-110); Anion Gap 13 mmol/L (10-20); BUN (Urea Nitrogen) 34 mg/dL (9.8-20.1); Bilirubin, Total 0.2 mg/dL (0.2-1.2); Calc. Creatinine Clearance 12 mL/min (70-130); Calcium 8.2 mg/dL (7.8-10.44); Carbon Dioxide 25 mmol/L (22-29); Chloride 103 mmol/L (98-107); Estimated GFR 16; Globulin 4.4 g/dL (2.4-3.5); Glucose 117 mg/dL (70-105); Potassium 3.7 mmol/L (3.5-5.1); Protein, Total 6.7 g/dL (6.0-8.3); Sodium 137 mmol/L (136-145)
[2023-01-06] MEDS: Ondansetron ODT 4 MG TAB SL PRN (06:02)
[2023-01-06] MEDS: Acetaminophen 325 MG TAB PO PRN (06:02)
[2023-01-06] MEDS: Heparin 5,000 UNITS/ML VIAL SC SCH ×2 (08:51→20:57)
[2023-01-06] MEDS: Calcium Carbonate 500 MG TAB PO SCH (08:51)
[2023-01-06] MEDS: hydrALAZINE 25 MG TAB PO SCH ×2 (08:52→21:00)
[2023-01-06] MEDS: NIFEdipine XL 30 MG TAB PO SCH ×2 (08:52→21:00)
[2023-01-06] MEDS: Metoprolol Tartrate 50 MG TAB PO SCH ×2 (08:53→21:00)
[2023-01-06] MEDS: HumaLOG 300 UNITS/3 ML VIAL SC PRN (12:04)
[2023-01-06] MEDS: Lantus 1000 UNITS/10 ML VIAL SC SCH (21:00)
[2023-01-06] MEDS: Atorvastatin Calcium 40 MG TAB PO SCH (21:00)
[2023-01-06] MEDS: Saccharomyces boulardii 250 MG CAP PO SCH (21:00)
[2023-01-07] MEDS: HYDROcodone/Acetaminophen 5/325 mg Tablet PO PRN ×2 (06:19→13:34)
[2023-01-07] MEDS: HumaLOG 300 UNITS/3 ML VIAL SC PRN ×2 (06:20→11:50)
[2023-01-07] MEDS: hydrALAZINE 25 MG TAB PO SCH ×2 (08:44→21:28)
[2023-01-07] MEDS: Calcium Carbonate 500 MG TAB PO SCH (08:44)
[2023-01-07] MEDS: NIFEdipine XL 30 MG TAB PO SCH ×2 (08:44→21:28)
[2023-01-07] MEDS: Metoprolol Tartrate 50 MG TAB PO SCH ×2 (08:45→21:28)
[2023-01-07] MEDS: Heparin 5,000 UNITS/ML VIAL SC SCH ×2 (08:46→21:27)
[2023-01-07] MEDS ORDERED: HYDROcodone/Acetaminophen 5/325 mg Tablet PO SCH (17:15)
[2023-01-07] MEDS: Lantus 1000 UNITS/10 ML VIAL SC SCH (21:26)
[2023-01-07] MEDS: Saccharomyces boulardii 250 MG CAP PO SCH (21:28)
[2023-01-07] MEDS: Atorvastatin Calcium 40 MG TAB PO SCH (21:28)
[2023-01-08] MEDS: hydrALAZINE 25 MG TAB PO SCH ×2 (09:18→21:46)
[2023-01-08] MEDS: Calcium Carbonate 500 MG TAB PO SCH (09:18)
[2023-01-08] MEDS: NIFEdipine XL 30 MG TAB PO SCH ×2 (09:19→21:47)
[2023-01-08] MEDS: Metoprolol Tartrate 50 MG TAB PO SCH ×2 (09:19→21:47)
[2023-01-08] MEDS: Heparin 5,000 UNITS/ML VIAL SC SCH ×2 (09:19→22:00)
[2023-01-08] MEDS: Atorvastatin Calcium 40 MG TAB PO SCH (21:46)
[2023-01-08] MEDS: Lantus 1000 UNITS/10 ML VIAL SC SCH (21:46)
[2023-01-08] MEDS: HumaLOG 300 UNITS/3 ML VIAL SC PRN (21:46)
[2023-01-08] MEDS: Saccharomyces boulardii 250 MG CAP PO SCH (21:47)
[2023-01-08] MEDS: traMADol HCl 50 MG TAB PO PRN (23:15)
[2023-01-08] MEDS: hydrOXYzine 25 MG TAB PO PRN (23:16)
[2023-01-09 06:01] LABS: #Basophils 0.2 thou/uL (0.0-0.2); #Eosinphils 0.4 thou/uL (0.0-0.7); #Lymphocytes 2.2 thou/uL (1.20-3.40); #Monocytes 1.4 thou/uL (0.11-0.59); #Neutrophils 11.6 thou/uL (1.40-6.50); %Basophils 1.4 % (0.0-1.0); %Eosinophils 2.4 % (0.0-10.0); %Lymphocytes 13.7 % (21.0-51.0); %Neutrophils 73.6 % (42.0-75.0); Hemoglobin 8.3 g/dL (12.0-16.0); Mean Corpuscular HGB CONC 31.7 g/dL (32.0-36.0); Mean Corpuscular Hemoglobin 33.2 pg (27.0-31.0); Mean Platelet Volume 9.4 fL (7.4-10.4); Platelet Count 378 10x3/uL (130-400); RBC Distribution Width 18.7 % (11.5-14.5); Red Blood Cell (RBC) Count 2.49 mill/uL (4.20-5.40); White Blood Cell (WBC) Count 15.7 10x3/uL (4.8-10.8)
[2023-01-09 06:14] LABS: Anion Gap 13 mmol/L (10-20); BUN (Urea Nitrogen) 34 mg/dL (9.8-20.1); Calc. Creatinine Clearance 13 mL/min (70-130); Calcium 8.6 mg/dL (7.8-10.44); Carbon Dioxide 26 mmol/L (22-29); Chloride 101 mmol/L (98-107); Estimated GFR 17; Glucose 129 mg/dL (70-105); Potassium 3.9 mmol/L (3.5-5.1); Sodium 136 mmol/L (136-145)
[2023-01-09] MEDS: NIFEdipine XL 30 MG TAB PO SCH ×2 (09:04→21:29)
[2023-01-09] MEDS: Metoprolol Tartrate 50 MG TAB PO SCH ×2 (09:06→21:30)
[2023-01-09] MEDS: Calcium Carbonate 500 MG TAB PO SCH (09:06)
[2023-01-09] MEDS: Acetaminophen 325 MG TAB PO PRN (09:06)
[2023-01-09] MEDS: hydrALAZINE 25 MG TAB PO SCH ×2 (09:12→21:29)
[2023-01-09] MEDS: Heparin 5,000 UNITS/ML VIAL SC SCH ×2 (09:12→21:27)
[2023-01-09] MEDS: HumaLOG 300 UNITS/3 ML VIAL SC PRN ×2 (11:26→16:38)
[2023-01-09] MEDS: traMADol HCl 50 MG TAB PO PRN (12:02)
[2023-01-09] MEDS: Nystatin Powder 15 GM BOT TOP PRN (15:16)
[2023-01-09] MEDS: Senokot S 8.6-50 MG TAB PO PRN (15:18)
[2023-01-09] MEDS: Lidocaine 5% Patch TD SCH (17:47)
[2023-01-09] MEDS: Lantus 1000 UNITS/10 ML VIAL SC SCH (21:28)
[2023-01-09] MEDS: Atorvastatin Calcium 40 MG TAB PO SCH (21:29)
[2023-01-09] MEDS: Saccharomyces boulardii 250 MG CAP PO SCH (21:30)
[2023-01-10] MEDS: Transdermal Patch Removal TOP SCH (06:01)
[2023-01-10] MEDS: Calcium Carbonate 500 MG TAB PO SCH (08:57)
[2023-01-10] MEDS: hydrALAZINE 25 MG TAB PO SCH ×2 (08:57→21:29)
[2023-01-10] MEDS: NIFEdipine XL 30 MG TAB PO SCH ×2 (08:57→21:28)
[2023-01-10] MEDS: Heparin 5,000 UNITS/ML VIAL SC SCH ×2 (08:57→21:27)
[2023-01-10] MEDS: Metoprolol Tartrate 50 MG TAB PO SCH ×2 (08:57→21:28)
[2023-01-10] MEDS: Senokot S 8.6-50 MG TAB PO PRN (08:57)
[2023-01-10] MEDS: Lidocaine 5% Patch TD SCH (21:25)
[2023-01-10] MEDS: Lantus 1000 UNITS/10 ML VIAL SC SCH (21:27)
[2023-01-10] MEDS: Saccharomyces boulardii 250 MG CAP PO SCH (21:28)
[2023-01-10] MEDS: Atorvastatin Calcium 40 MG TAB PO SCH (21:29)
[2023-01-11] MEDS: Transdermal Patch Removal TOP SCH (05:40)
[2023-01-11] MEDS: Calcium Carbonate 500 MG TAB PO SCH (08:00)
[2023-01-11] MEDS: hydrALAZINE 25 MG TAB PO SCH ×2 (08:00→20:53)
[2023-01-11] MEDS: Metoprolol Tartrate 50 MG TAB PO SCH ×2 (08:00→20:53)
[2023-01-11] MEDS: Heparin 5,000 UNITS/ML VIAL SC SCH ×2 (08:00→20:57)
[2023-01-11] MEDS: NIFEdipine XL 30 MG TAB PO SCH ×2 (08:00→20:53)
[2023-01-11] MEDS: Bisacodyl 5 MG TAB PO PRN (08:01)
[2023-01-11] MEDS ORDERED: Proctozone-HC 30 GM TUBE TOP PRN (09:44)
[2023-01-11] MEDS: traMADol HCl 50 MG TAB PO PRN (13:30)
[2023-01-11] MEDS: Lidocaine 5% Patch TD SCH (18:25)
[2023-01-11] MEDS: Atorvastatin Calcium 40 MG TAB PO SCH (20:52)
[2023-01-11] MEDS: Saccharomyces boulardii 250 MG CAP PO SCH (20:53)
[2023-01-11] MEDS: Lantus 1000 UNITS/10 ML VIAL SC SCH (21:06)
[2023-01-11] MEDS: Nystatin Powder 15 GM BOT TOP PRN (21:08)
[2023-01-12] MEDS: Transdermal Patch Removal TOP SCH (05:49)
[2023-01-12] MEDS: traMADol HCl 50 MG TAB PO PRN (08:31)
[2023-01-12] MEDS: Heparin 5,000 UNITS/ML VIAL SC SCH ×2 (08:31→20:47)
[2023-01-12] MEDS: NIFEdipine XL 30 MG TAB PO SCH ×2 (08:32→20:47)
[2023-01-12] MEDS: Metoprolol Tartrate 50 MG TAB PO SCH ×2 (08:33→20:47)
[2023-01-12] MEDS: Calcium Carbonate 500 MG TAB PO SCH (08:33)
[2023-01-12] MEDS: hydrALAZINE 25 MG TAB PO SCH ×2 (08:33→20:47)
[2023-01-12] MEDS: Ondansetron ODT 4 MG TAB SL PRN (10:11)
[2023-01-12] MEDS: Lidocaine 5% Patch TD SCH (17:59)
[2023-01-12] MEDS: Nystatin Powder 15 GM BOT TOP PRN (17:59)
[2023-01-12] MEDS: Atorvastatin Calcium 40 MG TAB PO SCH (20:47)
[2023-01-12] MEDS: Lantus 1000 UNITS/10 ML VIAL SC SCH (20:51)
[2023-01-12] MEDS: Saccharomyces boulardii 250 MG CAP PO SCH (20:54)
[2023-01-13] MEDS: hydrOXYzine 25 MG TAB PO PRN (00:14)
[2023-01-13] MEDS: Transdermal Patch Removal TOP SCH (06:09)
[2023-01-13] MEDS: traMADol HCl 50 MG TAB PO PRN ×2 (06:27→13:41)
[2023-01-13] MEDS: Calcium Carbonate 500 MG TAB PO SCH (10:01)
[2023-01-13] MEDS: hydrALAZINE 25 MG TAB PO SCH ×2 (10:01→21:04)
[2023-01-13] MEDS: Heparin 5,000 UNITS/ML VIAL SC SCH ×2 (10:01→21:06)
[2023-01-13] MEDS: NIFEdipine XL 30 MG TAB PO SCH ×2 (10:01→21:04)
[2023-01-13] MEDS: Metoprolol Tartrate 50 MG TAB PO SCH ×2 (10:02→21:04)
[2023-01-13] MEDS: Nystatin Powder 15 GM BOT TOP PRN ×2 (10:02→21:05)
[2023-01-13] MEDS: HumaLOG 300 UNITS/3 ML VIAL SC PRN (17:12)
[2023-01-13] MEDS: Lidocaine 5% Patch TD SCH (17:13)
[2023-01-13] MEDS: Saccharomyces boulardii 250 MG CAP PO SCH (21:04)
[2023-01-13] MEDS: Atorvastatin Calcium 40 MG TAB PO SCH (21:04)
[2023-01-13] MEDS: Lantus 1000 UNITS/10 ML VIAL SC SCH (21:18)
[2023-01-14] MEDS: Transdermal Patch Removal TOP SCH (05:57)
[2023-01-14] MEDS: Calcium Carbonate 500 MG TAB PO SCH (08:47)
[2023-01-14] MEDS: NIFEdipine XL 30 MG TAB PO SCH ×2 (08:47→21:06)
[2023-01-14] MEDS: Heparin 5,000 UNITS/ML VIAL SC SCH ×2 (08:47→21:08)
[2023-01-14] MEDS: Metoprolol Tartrate 50 MG TAB PO SCH ×2 (08:48→21:06)
[2023-01-14] MEDS: traMADol HCl 50 MG TAB PO PRN ×2 (08:48→19:35)
[2023-01-14] MEDS: hydrALAZINE 25 MG TAB PO SCH ×2 (08:48→21:07)
[2023-01-14] MEDS: Nystatin Powder 15 GM BOT TOP PRN ×2 (08:49→21:11)
[2023-01-14] MEDS: HumaLOG 300 UNITS/3 ML VIAL SC PRN ×2 (12:00→16:55)
[2023-01-14] MEDS: Lidocaine 5% Patch TD SCH (16:54)
[2023-01-14] MEDS: Atorvastatin Calcium 40 MG TAB PO SCH (21:06)
[2023-01-14] MEDS: Saccharomyces boulardii 250 MG CAP PO SCH (21:06)
[2023-01-14] MEDS: Lantus 1000 UNITS/10 ML VIAL SC SCH (21:08)
[2023-01-15] MEDS: Transdermal Patch Removal TOP SCH (05:07)
[2023-01-15] MEDS: Senokot S 8.6-50 MG TAB PO PRN (05:19)
[2023-01-15] MEDS: Heparin 5,000 UNITS/ML VIAL SC SCH ×2 (08:26→21:09)
[2023-01-15] MEDS: traMADol HCl 50 MG TAB PO PRN (08:33)
[2023-01-15] MEDS: Metoprolol Tartrate 50 MG TAB PO SCH ×2 (09:07→21:09)
[2023-01-15] MEDS: hydrALAZINE 25 MG TAB PO SCH ×2 (09:07→21:08)
[2023-01-15] MEDS: NIFEdipine XL 30 MG TAB PO SCH ×2 (09:07→21:08)
[2023-01-15] MEDS: Calcium Carbonate 500 MG TAB PO SCH (09:07)
[2023-01-15] MEDS: Nystatin Powder 15 GM BOT TOP PRN (09:09)
[2023-01-15] MEDS: Lidocaine 5% Patch TD SCH (17:45)
[2023-01-15] MEDS: Atorvastatin Calcium 40 MG TAB PO SCH (21:08)
[2023-01-15] MEDS: Saccharomyces boulardii 250 MG CAP PO SCH (21:09)
[2023-01-16] MEDS: Transdermal Patch Removal TOP SCH (06:07)
[2023-01-16] MEDS: HumaLOG 300 UNITS/3 ML VIAL SC PRN ×2 (06:33→11:45)
[2023-01-16] MEDS: Heparin 5,000 UNITS/ML VIAL SC SCH ×2 (07:42→21:08)
[2023-01-16] MEDS: Nystatin Powder 15 GM BOT TOP PRN (07:42)
[2023-01-16] MEDS: Calcium Carbonate 500 MG TAB PO SCH (07:48)
[2023-01-16] MEDS: Senokot S 8.6-50 MG TAB PO PRN (07:48)
[2023-01-16] MEDS: hydrALAZINE 25 MG TAB PO SCH ×2 (07:48→21:09)
[2023-01-16] MEDS: traMADol HCl 50 MG TAB PO PRN ×2 (07:48→18:28)
[2023-01-16] MEDS: NIFEdipine XL 30 MG TAB PO SCH ×2 (07:49→21:09)
[2023-01-16] MEDS: Metoprolol Tartrate 50 MG TAB PO SCH ×2 (07:49→21:09)
[2023-01-16] MEDS: Acetaminophen 325 MG TAB PO PRN (11:43)
[2023-01-16] MEDS: Lidocaine 4% Patch TD SCH (18:22)
[2023-01-16] MEDS: Atorvastatin Calcium 40 MG TAB PO SCH (21:08)
[2023-01-16] MEDS: Saccharomyces boulardii 250 MG CAP PO SCH (21:10)
[2023-01-17] MEDS: Transdermal Patch Removal TOP SCH (05:54)
[2023-01-17] MEDS: Heparin 5,000 UNITS/ML VIAL SC SCH ×2 (07:59→21:27)
[2023-01-17] MEDS: hydrALAZINE 25 MG TAB PO SCH ×2 (07:59→21:27)
[2023-01-17] MEDS: Metoprolol Tartrate 50 MG TAB PO SCH ×2 (08:00→21:27)
[2023-01-17] MEDS: NIFEdipine XL 30 MG TAB PO SCH ×2 (08:00→21:27)
[2023-01-17] MEDS: traMADol HCl 50 MG TAB PO PRN ×2 (08:01→18:11)
[2023-01-17] MEDS: Calcium Carbonate 500 MG TAB PO SCH (08:01)
[2023-01-17] MEDS ORDERED: Calcium Carbonate 500 MG ChewTAB PO PRN (11:48)
[2023-01-17] MEDS: Lidocaine 4% Patch TD SCH (18:11)
[2023-01-17] MEDS: Atorvastatin Calcium 40 MG TAB PO SCH (21:27)
[2023-01-17] MEDS: Saccharomyces boulardii 250 MG CAP PO SCH (21:27)
[2023-01-18] MEDS: traMADol HCl 50 MG TAB PO PRN ×3 (04:25→21:11)
[2023-01-18] MEDS: Transdermal Patch Removal TOP SCH (05:40)
[2023-01-18] MEDS: Acetaminophen 325 MG TAB PO PRN (09:07)
[2023-01-18] MEDS: Nystatin Powder 15 GM BOT TOP PRN (09:07)
[2023-01-18] MEDS: Metoprolol Tartrate 50 MG TAB PO SCH ×2 (09:08→20:58)
[2023-01-18] MEDS: Calcium Carbonate 500 MG TAB PO SCH (09:08)
[2023-01-18] MEDS: NIFEdipine XL 30 MG TAB PO SCH ×2 (09:08→20:58)
[2023-01-18] MEDS: hydrALAZINE 25 MG TAB PO SCH ×2 (09:08→20:58)
[2023-01-18] MEDS: Heparin 5,000 UNITS/ML VIAL SC SCH ×2 (09:09→20:59)
[2023-01-18] MEDS: HumaLOG 300 UNITS/3 ML VIAL SC PRN ×2 (11:37→16:48)
[2023-01-18] MEDS: Lidocaine 4% Patch TD SCH (18:01)
[2023-01-18] MEDS: Senokot S 8.6-50 MG TAB PO PRN (20:58)
[2023-01-18] MEDS: Atorvastatin Calcium 40 MG TAB PO SCH (20:58)
[2023-01-18] MEDS: Saccharomyces boulardii 250 MG CAP PO SCH (20:58)
[2023-01-19] MEDS: Transdermal Patch Removal TOP SCH (06:28)
[2023-01-19] MEDS: traMADol HCl 50 MG TAB PO PRN ×2 (06:34→18:21)
[2023-01-19] MEDS: NIFEdipine XL 30 MG TAB PO SCH ×2 (09:19→21:37)
[2023-01-19] MEDS: Metoprolol Tartrate 50 MG TAB PO SCH ×2 (09:20→21:38)
[2023-01-19] MEDS: Heparin 5,000 UNITS/ML VIAL SC SCH ×2 (09:20→21:37)
[2023-01-19] MEDS: Calcium Carbonate 500 MG TAB PO SCH (09:20)
[2023-01-19] MEDS: hydrALAZINE 25 MG TAB PO SCH ×2 (09:20→21:37)
[2023-01-19] MEDS: Lidocaine 4% Patch TD SCH (18:11)
[2023-01-19] MEDS: Saccharomyces boulardii 250 MG CAP PO SCH (21:37)
[2023-01-19] MEDS: Atorvastatin Calcium 40 MG TAB PO SCH (21:38)
[2023-01-20] MEDS: Senokot S 8.6-50 MG TAB PO PRN (03:14)
[2023-01-20 05:26] VITALS: BMI 16.7
[2023-01-20] MEDS: Transdermal Patch Removal TOP SCH (05:38)
[2023-01-20 07:55] VITALS: BP 147/74; TEMP 98.1
[2023-01-20] MEDS: NIFEdipine XL 30 MG TAB PO SCH (08:31)
[2023-01-20] MEDS: Calcium Carbonate 500 MG TAB PO SCH (08:32)
[2023-01-20] MEDS: Metoprolol Tartrate 50 MG TAB PO SCH (08:32)
[2023-01-20] MEDS: hydrALAZINE 25 MG TAB PO SCH (08:32)
[2023-01-20] MEDS: Heparin 5,000 UNITS/ML VIAL SC SCH (08:32)
[2023-01-20] MEDS: traMADol HCl 50 MG TAB PO PRN (08:37)
[2023-01-20] MEDS: Bisacodyl 5 MG TAB PO PRN (10:03)
== END 2023-01-20 13:08 | disposition home health service (06) | DRG 947 ==
LOC: NAV ACUTE 01-05 20:51
PROVIDERS: ADMIT Family Medicine; ATTEND Family Medicine
DX: R53.81 Other malaise (principal); J18.9 Pneumonia, unspecified organism; N18.6 End stage renal disease; J96.01 Acute respiratory failure with hypoxia; I13.2 Hypertensive heart and chronic kidney disease with heart failure and with stage 5 chronic kidney disease, or end stage renal disease; I50.22 Chronic systolic (congestive) heart failure; T82.7XXA Infection and inflammatory reaction due to other cardiac and vascular devices, implants and grafts, initial encounter; E78.5 Hyperlipidemia, unspecified; L29.9 Pruritus, unspecified; G89.29 Other chronic pain; B95.62 Methicillin resistant Staphylococcus aureus infection as the cause of diseases classified elsewhere; K21.9 Gastro-esophageal reflux disease without esophagitis; Z20.822 Contact with and (suspected) exposure to COVID-19; D47.2 Monoclonal gammopathy; E11.22 Type 2 diabetes mellitus with diabetic chronic kidney disease; Z90.710 Acquired absence of both cervix and uterus; Z83.3 Family history of diabetes mellitus; Z99.2 Dependence on renal dialysis; Z98.890 Other specified postprocedural states; Z88.5 Allergy status to narcotic agent; Z79.899 Other long term (current) drug therapy; Z79.4 Long term (current) use of insulin
CPT/HCPCS: 36415; 36416; 70450; 80048; 80053; 82550; 84484; 85025; 85610; 85652; 85730; 86140; 87811; 99284; J1644; J1815; Q0162; U0002

== ENCOUNTER 2023-01-19 07:31 | Emergency (ER) | payer OTHER ==
[2023-01-19 07:57] LABS: #Basophils 0.2 thou/uL (0.0-0.2); #Eosinphils 0.4 thou/uL (0.0-0.7); #Lymphocytes 2.7 thou/uL (1.20-3.40); #Monocytes 1.2 thou/uL (0.11-0.59); #Neutrophils 7.6 thou/uL (1.40-6.50); %Basophils 1.4 % (0.0-1.0); %Eosinophils 3.5 % (0.0-10.0); %Lymphocytes 22.5 % (21.0-51.0); %Monocytes 10.1 % (0.0-10.0); %Neutrophils 62.5 % (42.0-75.0); Hemoglobin 8.1 g/dL (12.0-16.0); Mean Corpuscular HGB CONC 30.4 g/dL (32.0-36.0); Mean Platelet Volume 8.7 fL (7.4-10.4); Platelet Count 387 10x3/uL (130-400); RBC Distribution Width 21.5 % (11.5-14.5); Red Blood Cell (RBC) Count 2.47 mill/uL (4.20-5.40); White Blood Cell (WBC) Count 12.1 10x3/uL (4.8-10.8)
[2023-01-19 08:06] LABS: ALT (SGPT) 69 U/L (8-55); AST (SGOT) 52 U/L (5-34); Albumin 2.6 g/dL (3.5-5.0); Alkaline Phosphatase 850 U/L (40-110); Anion Gap 12 mmol/L (10-20); BUN (Urea Nitrogen) 39 mg/dL (9.8-20.1); Bilirubin, Total 0.3 mg/dL (0.2-1.2); CK (CPK) 23 U/L (29-168); Calc. Creatinine Clearance 0 mL/min (70-130); Carbon Dioxide 30 mmol/L (22-29); Chloride 101 mmol/L (98-107); Estimated GFR 15; Globulin 4.4 g/dL (2.4-3.5); Glucose 102 mg/dL (70-105); Sodium 139 mmol/L (136-145)
[2023-01-19 08:20] LABS: INR-International Normal Ratio 0.9; Prothrombin Time 12.1 sec (12.0-14.7)
[2023-01-19 08:21] LABS: PTT 32.1 sec (22.9-36.1)
== END 2023-01-19 09:15 | disposition critical access hospital (66) ==
LOC: NAV ERS 07:31
DX: R20.2 Paresthesia of skin (principal); I10 Essential (primary) hypertension; E11.9 Type 2 diabetes mellitus without complications; E78.5 Hyperlipidemia, unspecified; E21.3 Hyperparathyroidism, unspecified
CPT/HCPCS: 80053; 82550; 84484; 85025; 85610; 85730; 36415-59

== ENCOUNTER 2023-01-23 16:56 | Emergency (ER) | payer OTHER ==
[2023-01-23] MEDS ORDERED: Acetaminophen 500 MG TAB ONE ×2 (18:11→18:14)
== END 2023-01-23 18:30 | disposition home or self-care (01) ==
LOC: NAV ERS 16:56
DX: S39.012A Strain of muscle, fascia and tendon of lower back, initial encounter (principal); M81.0 Age-related osteoporosis without current pathological fracture; I12.9 Hypertensive chronic kidney disease with stage 1 through stage 4 chronic kidney disease, or unspecified chronic kidney disease; E11.22 Type 2 diabetes mellitus with diabetic chronic kidney disease; N18.9 Chronic kidney disease, unspecified; D63.1 Anemia in chronic kidney disease; E78.5 Hyperlipidemia, unspecified; Z99.2 Dependence on renal dialysis; Z79.899 Other long term (current) drug therapy; W01.0XXA Fall on same level from slipping, tripping and stumbling without subsequent striking against object, initial encounter
CPT/HCPCS: 72125; 72131

== ENCOUNTER 2023-12-13 16:36 | Inpatient (IN) | payer OTHER ==
[2023-12-13] MEDS ORDERED: Ondansetron ODT 4 MG TAB PO PRN (18:37)
[2023-12-13] MEDS ORDERED: Glucagon 1 MG/ML KIT IM PRN (18:39)
[2023-12-13] MEDS ORDERED: Dextrose 50% Abboject 50 ML SYRINGE SLOW IVP PRN (18:39)
[2023-12-13] MEDS: Heparin 5,000 UNITS/ML VIAL SC SCH (21:24)
[2023-12-13] MEDS: Lantus 1000 UNITS/10 ML VIAL SC SCH (21:25)
[2023-12-13] MEDS: HYDROcodone/Acetaminophen 7.5/325 mg Tablet PO SCH (23:15)
[2023-12-14 06:04] LABS: #Basophils 0.1 thou/uL (0.0-0.2); #Eosinphils 0.2 thou/uL (0.0-0.7); #Lymphocytes 1.9 thou/uL (1.20-3.40); #Monocytes 1.1 thou/uL (0.11-0.59); #Neutrophils 5.4 thou/uL (1.40-6.50); %Basophils 1.5 % (0.0-1.0); %Eosinophils 1.9 % (0.0-10.0); %Monocytes 12.2 % (0.0-10.0); %Neutrophils 62.3 % (42.0-75.0); Hematocrit 39.5 % (36.0-47.0); Hemoglobin 12.7 g/dL (12.0-16.0); Mean Corpuscular HGB CONC 32.1 g/dL (32.0-36.0); Mean Corpuscular Hemoglobin 33.1 pg (27.0-31.0); Mean Platelet Volume 9.8 fL (7.4-10.4); Platelet Count 222 10x3/uL (130-400); RBC Distribution Width 14.4 % (11.5-14.5); Red Blood Cell (RBC) Count 3.82 mill/uL (4.20-5.40); White Blood Cell (WBC) Count 8.7 10x3/uL (4.8-10.8)
[2023-12-14 06:18] LABS: ALT (SGPT) 76 U/L (8-55); AST (SGOT) 60 U/L (5-34); Albumin 2.8 g/dL (3.5-5.0); Alkaline Phosphatase 597 U/L (40-110); Anion Gap 14 mmol/L (10-20); BUN (Urea Nitrogen) 33 mg/dL (9.8-20.1); Bilirubin, Total 0.4 mg/dL (0.2-1.2); Calc. Creatinine Clearance 9 mL/min (70-130); Calcium 8.4 mg/dL (7.8-10.44); Carbon Dioxide 26 mmol/L (22-29); Chloride 92 mmol/L (98-107); Estimated GFR 12; Globulin 3.8 g/dL (2.4-3.5); Glucose 82 mg/dL (70-105); Potassium 4.5 mmol/L (3.5-5.1); Protein, Total 6.6 g/dL (6.0-8.3); Sodium 127 mmol/L (136-145)
[2023-12-14] MEDS: Magnesium Oxide 400 MG TAB PO SCH (08:32)
[2023-12-14] MEDS: Metoprolol Tartrate 50 MG TAB PO SCH (08:32)
[2023-12-14] MEDS: Atorvastatin Calcium 20 MG TAB PO SCH (08:32)
[2023-12-14] MEDS: PARoxetine 20 MG TAB PO SCH (08:42)
[2023-12-14] MEDS ORDERED: PARoxetine 20 MG TAB PO SCH (09:00)
[2023-12-14] MEDS ORDERED: hydrOXYzine 25 MG TAB PO PRN (09:05)
[2023-12-14] MEDS ORDERED: Glucagon 1 MG/ML KIT IM PRN (12:26)
[2023-12-14] MEDS ORDERED: Dextrose 50% Abboject 50 ML SYRINGE SLOW IVP PRN (12:26)
[2023-12-14] MEDS: Senokot S 8.6-50 MG TAB PO PRN (23:28)
[2023-12-15] MEDS: HumaLOG 300 UNITS/3 ML VIAL SC PRN (12:04)
[2023-12-17] MEDS: HYDROcodone/Acetaminophen 10/325 mg Tablet PO PRN (08:57)
[2023-12-17] MEDS: HumaLOG 300 UNITS/3 ML VIAL SC PRN (20:57)
[2023-12-17] MEDS: HYDROcodone/Acetaminophen 7.5/325 mg Tablet PO SCH (23:46)
[2023-12-18] MEDS: Metoprolol Tartrate 50 MG TAB PO SCH (07:42)
[2023-12-18] MEDS: Acetaminophen 325 MG TAB PO PRN (15:06)
[2023-12-22 05:20] LABS: Platelet Count 308 10x3/uL (130-400)
[2023-12-22] MEDS: Bisacodyl 5 MG TAB PO PRN (17:52)
[2023-12-22] MEDS: Bisacodyl 10 MG SUPP PR SCH (20:30)
[2023-12-22] MEDS: Polyethylene Glycol 3350 17 GM Packet PO SCH (23:45)
[2023-12-23] MEDS: Polyethylene Glycol 3350 17 GM Packet PO SCH (08:15)
[2023-12-25 06:25] LABS: #Basophils 0.1 thou/uL (0.0-0.2); #Eosinphils 0.2 thou/uL (0.0-0.7); #Lymphocytes 1.4 thou/uL (1.20-3.40); #Monocytes 0.9 thou/uL (0.11-0.59); %Basophils 0.8 % (0.0-1.0); %Eosinophils 1.7 % (0.0-10.0); %Lymphocytes 13.2 % (21.0-51.0); %Monocytes 8.7 % (0.0-10.0); %Neutrophils 75.7 % (42.0-75.0); Hematocrit 34.8 % (36.0-47.0); Mean Corpuscular HGB CONC 31.5 g/dL (32.0-36.0); Mean Corpuscular Hemoglobin 33.4 pg (27.0-31.0); Mean Platelet Volume 9.6 fL (7.4-10.4); Platelet Count 310 10x3/uL (130-400); RBC Distribution Width 15.9 % (11.5-14.5); Red Blood Cell (RBC) Count 3.28 mill/uL (4.20-5.40); White Blood Cell (WBC) Count 10.5 10x3/uL (4.8-10.8)
[2023-12-25 06:37] LABS: Anion Gap 12 mmol/L (10-20); BUN (Urea Nitrogen) 32 mg/dL (9.8-20.1); Calc. Creatinine Clearance 13 mL/min (70-130); Calcium 8.8 mg/dL (7.8-10.44); Carbon Dioxide 31 mmol/L (22-29); Chloride 98 mmol/L (98-107); Estimated GFR 16; Glucose 99 mg/dL (70-105); Potassium 4.3 mmol/L (3.5-5.1); Sodium 137 mmol/L (136-145)
[2023-12-25 20:40] VITALS: BMI 17.1
[2023-12-28 17:57] VITALS: BP 150/70; TEMP 97.1
== END 2023-12-28 18:33 | disposition home or self-care (01) | DRG 559 ==
LOC: NAV ACUTE 21:09 → OBSVTOIN 21:09
PROVIDERS: ADMIT Family Medicine; ATTEND Family Medicine
DX: S42.302D Unspecified fracture of shaft of humerus, left arm, subsequent encounter for fracture with routine healing (principal); N18.6 End stage renal disease; E87.1 Hypo-osmolality and hyponatremia; I13.2 Hypertensive heart and chronic kidney disease with heart failure and with stage 5 chronic kidney disease, or end stage renal disease; I50.42 Chronic combined systolic (congestive) and diastolic (congestive) heart failure; R53.81 Other malaise; S22.41XD Multiple fractures of ribs, right side, subsequent encounter for fracture with routine healing; E78.5 Hyperlipidemia, unspecified; K21.9 Gastro-esophageal reflux disease without esophagitis; E11.22 Type 2 diabetes mellitus with diabetic chronic kidney disease; K59.00 Constipation, unspecified; I95.3 Hypotension of hemodialysis; Z90.49 Acquired absence of other specified parts of digestive tract; Z90.710 Acquired absence of both cervix and uterus; Z99.2 Dependence on renal dialysis; Z98.890 Other specified postprocedural states; Z88.5 Allergy status to narcotic agent
CPT/HCPCS: 36415; 36416; 80048; 80053; 85014; 85018; 85025; 85049; J1644; J1815

== ENCOUNTER 2023-12-28 21:00 | Emergency (ER) | payer OTHER | END 2023-12-28 21:56 | disposition home or self-care (01) | LOC: NAV ERS 21:00 | DX: R06.02 Shortness of breath (principal); E11.22 Type 2 diabetes mellitus with diabetic chronic kidney disease; I12.9 Hypertensive chronic kidney disease with stage 1 through stage 4 chronic kidney disease, or unspecified chronic kidney disease; N18.9 Chronic kidney disease, unspecified; Z99.2 Dependence on renal dialysis; E78.00 Pure hypercholesterolemia, unspecified | CPT/HCPCS: 99284 ==